=== PATIENT | female | born 1945 | race Caucasian/White ===

== ENCOUNTER 2017-02-28 08:33 | Outpatient (CLI) | payer MEDICARE ==
[2017-02-28 13:01] LABS: BASOPHILS % (AUTO) 0.7 %; EOSINOPHILS # (AUTO) 0.2 10^3/uL (0.0-0.7); EOSINOPHILS % (AUTO) 3.1 %; HCT - HEMATOCRIT 43.5 % (37.0-47.0); HGB - HEMOGLOBIN 14.1 g/dL (12.0-16.0); LYMPHOCYTES # (AUTO) 2.4 10^3/uL (1.5-3.5); LYMPHOCYTES % (AUTO) 34.5 %; MEAN CORPUSCULAR HGB CONC 32.3 g/dL (32.0-36.0); MEAN CORPUSCULAR VOLUME 86.6 fL (81.0-99.0); MEAN PLATELET VOLUME 9.2 fL (7.9-10.8); MONOCYTES # (AUTO) 0.4 10^3/uL (0.0-1.0); MONOCYTES % (AUTO) 6.1 %; NEUTROPHILS # (AUTO) 3.8 10^3/uL (1.5-6.6); NEUTROPHILS % (AUTO) 55.6 %; RED BLOOD COUNT 5.02 10^6/uL (4.20-5.40); UNCORRECTED WHITE BLOOD COUNT 6.8 x10^3/uL; WHITE BLOOD COUNT 6.8 x10^3/uL (4.8-10.8)
[2017-02-28 13:41] LABS: ALBUMIN/GLOBULIN RATIO 1.5 (1.0-2.2); BILIRUBIN,TOTAL 0.4 mg/dL (0.2-1.0); BUN - BLOOD UREA NITROGEN 24 mg/dL (6-20); CALCIUM 9.1 mg/dL (8.5-10.3); CARBON DIOXIDE - CO2 22 mmol/L (21-32); CHLORIDE 110 mmol/L (101-111); CHOL/HDL RATIO 3.4 (<4.4); CHOLESTEROL 198 mg/dL; GFR - MDRD 55 (>89); GLUCOSE 96 mg/dL (70-100); HDL CHOLESTEROL 58 mg/dL; POTASSIUM 4.5 mmol/L (3.5-5.0); SODIUM 140 mmol/L (135-145); TOTAL PROTEIN 6.5 g/dL (6.7-8.2); TRIGLYCERIDES 123 mg/dL; VLDL CHOLESTEROL 25 mg/dL
== END 2017-02-28 08:34 | disposition home or self-care (01) ==
LOC: LAB.WCP 08:33
PROVIDERS: ATTEND Family Medicine
DX: I10 Essential (primary) hypertension (principal); E78.5 Hyperlipidemia, unspecified
CPT/HCPCS: 36415; 80053; 80061; 85025

== ENCOUNTER 2017-03-01 10:44 | Outpatient (CLI) | payer OTHER ==
--- NOTE | 2017-03-04 11:23 | Mammography Report ---
DIGITAL SCREENING MAMMOGRAM: 03/01/2017 CLINICAL HISTORY: A 71-year-old female in for routine screening mammogram. The patient's grandmother had breast cancer at age 50. The patient has had no prior breast surgeries. COMPARISON: 01/04/2012, 03/10/2013, 04/13/2014, 05/09/2015. TECHNIQUE: Craniocaudad and oblique lateral views of each breast were obtained with Hologic full-field digital mammography. FINDINGS: BREAST DENSITY: The breasts are almost entirely composed of fat. Two small benign appearing lymph nodes are once again noted adjacent to one another at the 10 o'clock position of the right breast 8.3 cm superior lateral to the right nipple. A small cluster of benign calcifications are once again seen in the 6 o'clock position 8.4 cm inferior and posterior to the left nipple. No change is noted in this cluster of calcifications as compared to multiple preceding exams dating as far back as 01/04/2012. The finding continues to have a benign appearance. IMPRESSION: BREASTS APPEAR RADIOGRAPHICALLY BENIGN. BIRADS CATEGORY 2-BENIGN FINDINGS. RECOMMENDATION: ANNUAL BILATERAL SCREENING MAMMOGRAPHY. STANDARD QUALIFYING STATEMENTS 1. This examination was reviewed with the aid of Computer-Aided Detection (CAD). 2. A negative or benign imaging report should not delay biopsy if clinically suspicious findings are present. Consider surgical consultation if warranted. More than 5% of cancers are not identified by imaging. 3. Dense breasts may obscure an underlying neoplasm. JOB #: [id number] EXT JOB #: [id number] [facility]
== END 2017-03-01 10:45 | disposition home or self-care (01) ==
LOC: DI.N 10:44
PROVIDERS: ATTEND Family Medicine
DX: Z12.31 Encounter for screening mammogram for malignant neoplasm of breast (principal)
CPT/HCPCS: 77067

== ENCOUNTER 2017-09-19 09:07 | Outpatient (CLI) | payer MEDICARE ==
[2017-09-19 13:04] LABS: BASOPHILS % (AUTO) 0.5 %; EOSINOPHILS # (AUTO) 0.2 10^3/uL (0.0-0.7); EOSINOPHILS % (AUTO) 2.4 %; HGB - HEMOGLOBIN 14.9 g/dL (12.0-16.0); LYMPHOCYTES # (AUTO) 2.3 10^3/uL (1.5-3.5); LYMPHOCYTES % (AUTO) 30.1 %; MEAN CORPUSCULAR HEMOGLOBIN 30.3 pg (27.0-31.0); MEAN CORPUSCULAR VOLUME 91.7 fL (81.0-99.0); MEAN PLATELET VOLUME 8.9 fL (7.9-10.8); MONOCYTES # (AUTO) 0.4 10^3/uL (0.0-1.0); MONOCYTES % (AUTO) 5.5 %; NEUTROPHILS # (AUTO) 4.7 10^3/uL (1.5-6.6); NEUTROPHILS % (AUTO) 61.5 %; PLT - PLATELET COUNT 220 10^3/uL (130-450); RED BLOOD COUNT 4.93 10^6/uL (4.20-5.40); RED CELL DISTRIBUTION WIDTH 13.9 % (12.0-15.0); WHITE BLOOD COUNT 7.6 x10^3/uL (4.8-10.8)
[2017-09-19 13:25] LABS: ALBUMIN 4.1 g/dL (3.2-5.5); ALBUMIN/GLOBULIN RATIO 1.5 (1.0-2.2); ALKALINE PHOSPHATASE 81 IU/L (42-121); ALT ALANINE AMINOTRANSFERASE 27 IU/L (10-60); AST ASPARTATE AMINOTRANSFERASE 27 IU/L (10-42); BILIRUBIN,TOTAL 0.6 mg/dL (0.2-1.0); BUN - BLOOD UREA NITROGEN 21 mg/dL (6-20); CALCIUM 9.1 mg/dL (8.5-10.3); CARBON DIOXIDE - CO2 24 mmol/L (21-32); CHLORIDE 108 mmol/L (101-111); CHOL/HDL RATIO 2.9 (<4.4); CHOLESTEROL 200 mg/dL; CREATININE 1.1 mg/dL (0.4-1.0); GFR - MDRD 49 (>89); GLUCOSE 99 mg/dL (70-100); HDL CHOLESTEROL 68 mg/dL; LDL CHOLESTEROL,CALCULATED 114 mg/dL; LDL/HDL RATIO 1.7 (<4.4); SODIUM 140 mmol/L (135-145); TOTAL PROTEIN 6.8 g/dL (6.7-8.2); VLDL CHOLESTEROL 18 mg/dL
== END 2017-09-19 09:08 | disposition home or self-care (01) ==
LOC: LAB.WCP 09:07
PROVIDERS: ATTEND Family Medicine
DX: E78.5 Hyperlipidemia, unspecified (principal); E55.9 Vitamin D deficiency, unspecified; I10 Essential (primary) hypertension; Z79.899 Other long term (current) drug therapy
CPT/HCPCS: 36415; 80053; 80061; 82306; 85025

== ENCOUNTER 2018-03-06 10:07 | Outpatient (CLI) | payer MEDICARE ==
--- NOTE | 2018-03-07 09:35 | Mammography Report ---
Procedure Date: 03/06/2018 Accession Number: [id number] / [id number] Procedure: MGN - Screening Mammo Dig Bilat CPT Code: FULL RESULT: EXAM: Screening Mammo Dig Bilat DATE: 03/06/2018 10:36 AM CLINICAL HISTORY: Grandmother with breast cancer TECHNIQUE: Bilateral CC and MLO views were obtained. COMPARISON: 03/01/2017, 05/09/2015, 04/13/2014, 03/10/2013 and 01/04/2012 FINDINGS: There are scattered fibroglandular densities. On the right CC projection laterally there is a faint nodule with possible associated spiculation not confirmed on the MLO projection, likely representing superimposition of structures. However, further evaluation by spot compression and true lateral view is suggested. No other suspicious masses, clustered microcalcifications, skin thickening, or regions of architectural distortion are identified. IMPRESSION: Negative left breast. Needs additional evaluation right breast. RECOMMENDATION: Right spot compression and true lateral views. Ultrasound if indicated. BIRADS CATEGORY 0: Incomplete examination: STANDARD QUALIFYING STATEMENTS: 1. This examination was reviewed with the aid of Computer-Aided Detection (CAD). 2. A negative or benign imaging report should not delay biopsy if clinically suspicious findings are present. Consider surgical consultation if warrented. More than 5% of cancers are not identified by imaging. 3. Dense breasts may obscure an underlying neoplasm.
== END 2018-03-06 10:08 | disposition home or self-care (01) ==
LOC: DI.N 10:07
PROVIDERS: ATTEND Family Medicine
DX: Z12.31 Encounter for screening mammogram for malignant neoplasm of breast (principal); R92.8 Other abnormal and inconclusive findings on diagnostic imaging of breast
CPT/HCPCS: 77067

== ENCOUNTER 2018-06-19 14:00 | Outpatient (CLI) | payer MEDICARE ==
--- NOTE | 2018-06-19 16:08 | Mammography Report ---
Reason: CB RT BREAST w LUMPx 3MO. Procedure Date: 06/19/2018 Accession Number: [id number] / [id number] Procedure: SALLY - Diagnostic Right 3D Romeo CPT Code: 51527 FULL RESULT: EXAM: Diagnostic Right 3D Roemo DATE: 06/19/2018 2:45 PM CLINICAL HISTORY: 73-year-old female recalled from screening mammogram for right breast nodule; the patient also has been feeling a palpable lump in her right breast for 3 months. TECHNIQUE: Right cc and 2-D and 3-D romeo imaging was performed as well as a right spot CC and spot LM views. COMPARISON: 03/01/2017, 05/09/2015, 04/13/2014. FINDINGS: The breasts demonstrate scattered fibroglandular densities bilaterally. The identified nodule with questionable spiculation is demonstrated to have no associated spiculations and is well rounded and stable compared to previous study when reviewed with spot imaging and tomography. The area of a palpable lump by the patient is identified as stable breast tissue variation. No suspicious calcifications, masses or architectural distortion is identified. IMPRESSION: Benign findings RECOMMENDATION: Recommend routine annual Screening mammography unless otherwise clinically indicated. BIRADS CATEGORY 2: Benign findings STANDARD QUALIFYING STATEMENTS: 1. This examination was not reviewed with the aid of Computer-Aided Detection (CAD). 2. A negative or benign imaging report should not delay biopsy if clinically suspicious findings are present. Consider surgical consultation if warrented. More than 5% of cancers are not identified by imaging. 3. Dense breasts may obscure an underlying neoplasm. 4. This examination was reviewed with the aid of 3D imaging (tomography).
== END 2018-06-19 14:01 | disposition home or self-care (01) ==
LOC: DI 14:00
PROVIDERS: ATTEND Family Medicine
DX: N63.10 Unspecified lump in the right breast, unspecified quadrant (principal)

== ENCOUNTER 2018-09-01 09:31 | Outpatient (CLI) | payer MEDICARE ==
--- NOTE | 2018-09-01 17:22 | CT Report ---
Reason: BILATERAL SHOULDER SEVERE ARTHRITIS Procedure Date: 09/01/2018 Accession Number: [id number] / [id number] Procedure: CT - Upper Extremity Right W/O CPT Code: FULL RESULT: EXAM: RIGHT SHOULDER CT WITHOUT CONTRAST EXAM DATE: 09/01/2018 10:43 AM. CLINICAL HISTORY: Bilateral shoulder severe arthritis. COMPARISON: None. TECHNIQUE: Thin-section axial images were acquired of the shoulder without contrast. Post-processing: Oblique coronal and sagittal reformats. Other: None. In accordance with CT protocol optimization, one or more of the following dose reduction techniques were utilized for this exam: automated exposure control, adjustment of mA and/or KV based on patient size, or use of iterative reconstructive technique. FINDINGS: Bones: No fracture or bone lesion. Acromioclavicular Region: The patient has a type II acromion. The acromioclavicular joint is mildly osteoarthritic. Glenohumeral Joint: The glenohumeral joint shows "[id number]" appearance, marginal arthrosis, dysplastic flattening, and large marginal osteophytes extending inferiorly. Numerous loose bodies also seen in superior margin of the glenohumeral joint. Approximately 15 degrees of retroversion. Musculature: Normal. No fatty atrophy. Other: The visualized lungs are unremarkable. No lymphadenopathy in the visualized axilla. IMPRESSION: 1. Type II unipartite undersurface osseous acromion shape. Mild AC joint osteoarthritic change. 2. The glenohumeral joint shows broadening of the articular surfaces, "[id number]" appearance, subchondral sclerosis and cystic change, marginal arthrosis. Moderate retroversion also seen. Kellgren Gabriel grade 4 changes. [facility] MUSCULOSKELETAL RADIOLOGY SECTION
--- NOTE | 2018-09-01 17:22 | CT Report ---
Reason: BILATERAL SHOULDER SEVERE ARTHRITIS Procedure Date: 09/01/2018 Accession Number: [id number] / [id number] Procedure: CT - Upper Extremity Left W/O CPT Code: FULL RESULT: EXAM: LEFT SHOULDER CT WITHOUT CONTRAST EXAM DATE: 09/01/2018 10:43 AM. CLINICAL HISTORY: Bilateral shoulder severe arthritis. COMPARISON: SHOULDER 3 VIEW BILAT 08/21/2018 3:06 PM. TECHNIQUE: Thin-section axial images were acquired of the shoulder without contrast. Post-processing: Oblique coronal and sagittal reformats. Other: None. In accordance with CT protocol optimization, one or more of the following dose reduction techniques were utilized for this exam: automated exposure control, adjustment of mA and/or KV based on patient size, or use of iterative reconstructive technique. FINDINGS: Bones: No fracture or bone lesion. Acromioclavicular Region: The patient has a type II acromion. The acromioclavicular joint is moderately osteoarthritic. Glenohumeral Joint: Is broadened and shows large marginal osteophytosis extending primarily inferiorly. No retroversion. No distinct loose bodies. Small joint effusion. Musculature: Normal. No fatty atrophy. Other: The visualized lungs are unremarkable. No lymphadenopathy in the visualized axilla. IMPRESSION: 1. Glenohumeral joint shows "[id number]" appearance, with large marginal osteophytosis extending primarily inferiorly. No distinct loose bodies, significant broadening of the articular surfaces. Kellgren Gabriel grade 4 changes. [facility] MUSCULOSKELETAL RADIOLOGY SECTION
== END 2018-09-01 09:32 | disposition home or self-care (01) ==
LOC: DI 09:31
PROVIDERS: ATTEND Orthopaedic Surgery
DX: M19.011 Primary osteoarthritis, right shoulder (principal); M19.012 Primary osteoarthritis, left shoulder

== ENCOUNTER 2018-11-11 14:33 | Outpatient (CLI) | payer MEDICARE ==
--- NOTE | 2018-11-11 17:12 | MRI Report ---
Reason: OSTEOARTHORITIS OF BILATERAL SHOULDERS Procedure Date: 11/11/2018 Accession Number: [id number] / [id number] Procedure: MRI - Shoulder RT W/O CPT Code: FULL RESULT: EXAM: RIGHT SHOULDER MRI WITHOUT CONTRAST EXAM DATE: 11/11/2018 03:25 PM. CLINICAL HISTORY: Right shoulder osteoarthritis. COMPARISON: None. TECHNIQUE: Multiplanar, multisequence T1-weighted and fluid-sensitive sequences of the shoulder without contrast. Other: None. FINDINGS: Acromioclavicular Region: The acromion is type I. There is mild acromioclavicular joint osteoarthritis. The coracoacromial and coracoclavicular ligaments are intact. Small amount of fluid at the subacromial subdeltoid bursa. Glenohumeral Region: No subluxation. Small to moderate sized joint effusion. Grade 4 chondromalacia at the humeral head and glenoid. The glenohumeral ligaments and joint capsule are unremarkable. Bone Marrow: Cortical irregularity, subcortical cysts, sclerosis, osteophytosis, and subcortical marrow edema at the humeral head and glenoid. Labrum: Degenerative hypertrophy at the superior and posterior aspects of the labrum. Focal ossification at the posterior aspect of the superior labrum. The anterior and inferior aspects of the labrum are small and degenerated. Musculature/Rotator Cuff: There is supraspinatus and infraspinatus tendinosis. Teres minor tendon is intact. There is subscapularis tendinosis. No edema or fatty atrophy. Biceps Tendon: The long head of the biceps tendon and biceps dayana are intact. Other: The subcutaneous tissues are unremarkable. IMPRESSION: 1. Severe glenohumeral joint osteoarthritis. 2. Supraspinatus, infraspinatus, and subscapularis tendinosis. 3. Degenerative hypertrophy at the superior and posterior aspects of the labrum. The anterior and inferior aspects of the labrum are small and degenerated. Focal ossification at the posterior aspect of the superior labrum. 4. Mild acromioclavicular joint osteoarthritis. 5. Small to moderate sized joint effusion. [facility] MUSCULOSKELETAL RADIOLOGY SECTION
== END 2018-11-11 14:34 | disposition home or self-care (01) ==
LOC: DI 14:33
PROVIDERS: ATTEND Orthopaedic Surgery Sports Medicine
DX: M19.012 Primary osteoarthritis, left shoulder (principal); M19.011 Primary osteoarthritis, right shoulder; M67.911 Unspecified disorder of synovium and tendon, right shoulder; M25.411 Effusion, right shoulder

== ENCOUNTER 2018-12-23 08:00 | Outpatient (CLI) | payer MEDICARE ==
[2018-12-23 18:59] LABS: BASOPHILS % (AUTO) 0.5 %; EOSINOPHILS # (AUTO) 0.2 10^3/uL (0.0-0.7); EOSINOPHILS % (AUTO) 3.2 %; HGB - HEMOGLOBIN 14.5 g/dL (12.0-16.0); LYMPHOCYTES # (AUTO) 2.9 10^3/uL (1.5-3.5); LYMPHOCYTES % (AUTO) 40.4 %; MEAN CORPUSCULAR HEMOGLOBIN 30.1 pg (27.0-31.0); MEAN CORPUSCULAR HGB CONC 32.7 g/dL (32.0-36.0); MEAN CORPUSCULAR VOLUME 92.1 fL (81.0-99.0); MEAN PLATELET VOLUME 8.7 fL (7.9-10.8); MONOCYTES # (AUTO) 0.5 10^3/uL (0.0-1.0); MONOCYTES % (AUTO) 6.4 %; NEUTROPHILS # (AUTO) 3.5 10^3/uL (1.5-6.6); NEUTROPHILS % (AUTO) 49.5 %; PLT - PLATELET COUNT 252 10^3/uL (130-450); RED BLOOD COUNT 4.83 10^6/uL (4.20-5.40); RED CELL DISTRIBUTION WIDTH 13.3 % (12.0-15.0); WHITE BLOOD COUNT 7.1 x10^3/uL (4.8-10.8)
[2018-12-23 19:27] LABS: CALCIUM 8.6 mg/dL (8.5-10.3); CREATININE 1.1 mg/dL (0.4-1.0)
== END 2018-12-23 23:59 | disposition home or self-care (01) ==
LOC: LAB.WCP 08:00
PROVIDERS: ATTEND Orthopaedic Surgery Sports Medicine
DX: Z01.812 Encounter for preprocedural laboratory examination (principal); M19.011 Primary osteoarthritis, right shoulder
CPT/HCPCS: 36415; 80048; 85025; 87640

== ENCOUNTER 2018-12-24 07:30 | Inpatient (IN) | payer MEDICARE ==
[2018-12-31] MEDS ORDERED: ceFAZolin 2 GM/50 ML 2 GM/50 ML BAG IV ONE ×2 (06:36→09:30)
[2018-12-31] MEDS ORDERED: LACTATED RINGERS 1,000 ML IV ONE ×3 (07:05→12:25)
--- NOTE | 2018-12-31 07:16 | ANESTHESIA ---
Pre-Anesthesia VS, & Labs - Diagnosis right shoulder degenerative joint disease - Procedure right total shoulder arthroplasty Vital Signs: Temp Pulse Resp BP Pulse Ox 36.5 C 92 18 112/95 H 95 12/31/18 06:51 12/31/18 06:51 12/31/18 06:51 12/31/18 06:51 12/31/18 06:51 Height 5 ft 5 in Weight (kg) 89.9 kg - NPO >8 hours - Is Patient ?: Not Applicable Home Medications and Allergies Home Medications: Ambulatory Orders Hydrocortisone 1% Oint [Hydrocortisone] 28 gm TP BID PRN 12/18/18 Melatonin 1 mg PO QPM PRN 12/18/18 Multivitamin [Multiple Vitamins] 1 each PO DAILY 12/18/18 Acetaminophen [Tylenol] 650 mg PO Q6H PRN 11/09/13 Calcium Carbonate/Vitamin D3 [Calcium + Vitamin D Tablet] 1 each PO QPM 11/09/13 Lisinopril 20 mg PO DAILY 11/09/13 Meloxicam [Mobic] 7.5 mg PO BID 11/09/13 Oxybutynin Chloride [Oxybutynin Chloride ER] 10 mg PO BID 11/09/13 Pravastatin Sodium 20 mg PO QPM 11/09/13 Ranitidine HCl [Acid Wire Saw Operator] 150 mg PO BIDWM 11/09/13 traMADol [Ultram] 50 mg PO QID PRN 08/29/16 Aspirin [Aspir-Low] 81 mg PO DAILY 08/30/16 Hydrocortisone 1% Oint [Hydrocortisone] 28 gm TP BID PRN 12/18/18 Melatonin 1 mg PO QPM PRN 12/18/18 Multivitamin [Multiple Vitamins] 1 each PO DAILY 12/18/18 Allergies/Adverse Reactions: Allergies Allergy/AdvReac Type Severity Reaction Status Date / Time No Known Drug Allergies Allergy Verified 11/09/13 15:40 Anes History & Medical History - Anesthetic History Anesthesia Complications: reports: No previous complications Family history of Anesthesia Complications: Denies Family history of Malignant Hyperthermia: Denies - Medical History Cardiovascular: reports: Hypertension, High cholesterol Pulmonary: reports: None Gastrointestinal: reports: GERD Urinary: reports: Incontinence Musculoskeletal: reports: Osteoarthritis, Chronic back pain, Other Endocrine/Autoimmune: reports: None Skin: reports: Eczema - Surgical History General: Colonoscopy Eyes Ears Nose Throat (EENT): Cataracts, Other Gynecologic: Tubal ligation, Hysterectomy Exam General: Alert, Oriented x3, Cooperative, No acute distress Dental: Other (caps) Mouth Openin Fingerbreadth Neck Mobility: Normal Mallampati classification: III Thyromental Distance: greater than 6 cm Respiratory: Lungs clear, Normal breath sounds, No respiratory distress, No accessory muscle use Cardiovascular: Regular rate, Normal S1, Normal S2, No murmurs Mental/Cognitive Status: Alert/Oriented X3, Normal for patient Plan Anesthesia Type: General, Interscalene Block Consent for Procedure(s) Verified and Reviewed: Yes Code Status: Attempt Resuscitation ASA classification: 2-Mild systemic disease Is this case an emergency?: No
[2018-12-31] MEDS ORDERED: ROCURONIUM 50 MG/5 ML VIAL IVP ONE (09:30)
[2018-12-31] MEDS ORDERED: fentaNYL 100 MCG/2 ML VIAL IVP ONE (09:30)
[2018-12-31] MEDS ORDERED: PROPOFOL 200 MG/20 ML VIAL IVP ONE (09:30)
[2018-12-31] MEDS ORDERED: LIDOCAINE-MPF 2% 5 ML VIAL IM ONE (09:30)
[2018-12-31] MEDS ORDERED: ePHEDrine 50 MG/ML VIAL IVP ONE (09:30)
[2018-12-31] MEDS ORDERED: MIDAZOLAM 2 MG/2 ML VIAL IVP ONE (09:30)
[2018-12-31] MEDS ORDERED: NEOSTIGMINE 1 MG/1 ML 10 ML MDV IVP ONE (09:30)
[2018-12-31] MEDS ORDERED: ACETAMINOPHEN 1,000 MG/100 ML 100 ML IV ONE (09:30)
[2018-12-31] MEDS ORDERED: ONDANSETRON 4 MG/2 ML VIAL IVP ONE (09:30)
[2018-12-31] MEDS ORDERED: GLYCOPYRROLATE 1 MG/5 ML VIAL IVP ONE (09:30)
[2018-12-31] MEDS: LACTATED RINGERS 1,000 ML IV ONE (09:53)
[2018-12-31] MEDS ORDERED: ONDANSETRON 4 MG/2 ML VIAL ONE (11:57)
--- NOTE | 2018-12-31 11:57 | IMMEDIATE POSTOPERATIVE NOTE ---
Immediate Postoperative Note - Procedure Note Procedure Date: 12/31/18 Pre-Op Diagnosis: Right shoulder degenerative joint disease Procedure: Right total shoulder arthroplasty Post-Op Diagnosis: Same Primary Surgeon: Lois Can MD Supervisor Slitting And Shipping: janel Anesthesia Type: General ET tube, Regional block Findings: Advanced right shoulder glenohumeral degenerative disease with some medialization of the joint and cystic changes sclerosis and diminutive bone anterior inferior glenoid. Ultimately well-positioned total shoulder arthroplasty with appropriate range of motion and stability. External rotation to possibly 40 degrees post subscapularis repair with good integrity of the repair. Complications: No complications Plan of Care: Patient tolerated procedure well. Instrument and sponge counts correct. Patient transferred to the recovery room in stable condition. Patient will follow standard postoperative right total shoulder arthroplasty protocol. She would be in a sling. She will be encouraged for wrist and hand motion as well as elbow flexion extension. She would not externally rotate beyond 0 degrees. She would do no active internal rotation at the shoulder. No other active shoulder motion for now. She would avoid weightbearing and resistance right upper extremity. She would be admitted for pain control and observation and pending eating ambulating and comfortable would be plan to discharge postoperative day 1 if doing well.
[2018-12-31] MEDS ORDERED: SODIUM CHLORIDE FLUSH 0.9% 10 ML SYRINGE IVP PRN (11:59)
[2018-12-31] MEDS ORDERED: ACETAMINOPHEN 1,000 MG/100 ML 100 ML IV PRN (11:59)
[2018-12-31] MEDS ORDERED: PROCHLORPERAZINE 10 MG/2 ML VIAL IVP PRN (11:59)
[2018-12-31] MEDS ORDERED: MORPHINE 2 MG/ML SYRINGE IVP PRN (11:59)
[2018-12-31] MEDS ORDERED: ONDANSETRON 4 MG/2 ML VIAL IVP PRN (11:59)
[2018-12-31] MEDS: fentaNYL 100 MCG/2 ML VIAL ONE ×3 (12:09→12:39)
[2018-12-31] MEDS ORDERED: PROMETHAZINE 25 MG/1 ML VIAL ONE (12:21)
[2018-12-31] MEDS: ceFAZolin 2 GM/50 ML 2 GM/50 ML BAG IV SCH ×2 (13:16→21:57)
--- NOTE | 2018-12-31 15:45 | OPERATIVE REPORT ---
DATE OF SERVICE: 12/31/2018 Physician: Dimas Can MD SURGEON: Dimas Can MD BOTTLE CASER: None. ANESTHESIOLOGIST: Gurjit Morales MD ANESTHESIA TYPE: Right side ultrasound-guided interscalene block by Anesthesia team as well as general endotracheal anesthesia. COMPRESSION DEVICE: Bilateral calf SCD boots. PREOPERATIVE ANTIBIOTICS: 2 grams of weight-based IV Ancef. ESTIMATED BLOOD LOSS: 100 mL. FLUIDS: 1300 mL of lactated Ringer's. INTRAOPERATIVE COMPLICATIONS: None noted. PREOPERATIVE DIAGNOSIS: Right shoulder glenohumeral degenerative joint disease. POSTOPERATIVE DIAGNOSIS: Right shoulder glenohumeral degenerative joint disease. PROCEDURE PERFORMED: Right total shoulder arthroplasty. ORTHOPEDIC IMPLANTS [id number]: 1. Comprehensive shoulder system modular head variable offset.Head size 42 x 18 mm height x 46 mm radius of curvature. 2. Hybrid glenoid base.Glenoid size 4 small. 3. Hybrid glenoid porous titanium glenoid post-Regenerex. 4. Comprehensive shoulder system mini humeral stem porous plasma.Mini humeral stem 13 x 83 mm. 5. Comprehensive shoulder system standard taper adapter. 6. [employer] Ref[employer] bone cement. INTRAOPERATIVE FINDINGS: Patient noted to have significant crepitus and decreased range of motion of the glenohumeral joint, which improves post procedure. The articular surface of the glenohumeral joint sclerotic cystic change with significant osteophytosis, flattening of the humeral head, flattening and medialization of the glenoid with poor bone stock anterior inferiorly. There is good fixation of the components with range of motion, forward flexion over 170 degrees, abduction greater than 80 degrees, internal rotation to the belt line, external rotation greater than 40 degrees post- subscapularis fixation with good integrity of the repair. There is appropriately 50% translation with "shucking." There is noted to be very thin bone anterior inferiorly, so given the orientation of the glenoid and bone stock, unable to push the glenoid further posteriorly without compromising posterior fixation. As such, there is a thin rim of bone supporting the anterior inferior peg. HISTORY OF PRESENT ILLNESS AND INDICATIONS: Patient is a 73-year-old female with longstanding right shoulder pain. She is known to have glenohumeral degenerative disease and indicated for operative treatment. We did discuss previously risks, benefits, and alternatives in the clinic. These were again highlighted in the preoperative care unit. She verbalized understanding of the above and verbalized her wish to proceed with operative treatment. Informed consent was given. DESCRIPTION OF PROCEDURE: On 12/31/2018, patient was identified in the preoperative care unit. She identifies her right shoulder as operative site. This is signed by operating surgeon. Patient received preoperative weight-based IV antibiotics. Right side is identified. She has ultrasound-guided interscalene block by Anesthesia team. Patient is brought to the operating room. General anesthesia is administered. Patient is placed in a beach chair position with head, neck, extremities in anatomically comfortable and safe position to avoid peripheral nerve stretch or compression. Patient then has right upper extremity draped out and then pre- scrubbed with Hibiclens solution and then alcohol. She then has chlorhexidine prep and drape sterilely. At this point, surgical pause identifies right shoulder as operative site. At this point, a deltopectoral incision is made through skin, spreading dissection carried down to the deltopectoral interval. Cephalic vein is identified and brought laterally with the deltoid. At this point, conjoined tendon is identified, the clavipectoral fascia is entered, and then the area under the deltoid is developed using a Mckeon and lap pad. A Yamilex retractor is then placed gently against the conjoined tendon and onto the deltoid. This reveals bursal tissue, which is removed, revealing the underlying subscapularis. At this point, the biceps tendon is palpated in the groove, and then with an appropriate approximately 1 cm cuff, after tagging the subscapularis at the superior and inferior aspects, the subscapularis and the capsule are elevated away after tenotomy. This reveals underlying glenohumeral joint with significant osteophytosis. The rotator interval reveals that the biceps has a small biceps stump, but otherwise the biceps is sitting in the groove and has already had a traumatic tenotomy. At this point, osteophytosis is removed, the soft tissue is elevated off the inferior aspect of the neck, staying inside the capsule to avoid iatrogenic injury to axillary nerve and associated vascular structures. Once the soft tissue is elevated appropriately and soft tissue is released appropriately, the osteophytosis is then removed around the head. The anterior aspect of the supraspinatus is noted to be intact and protected throughout. At this point, the template is set appropriately, such that it will be approximately 5 mm off the footprint of the rotator cuff with appropriate version. Given the patient's slight retroversion of the [place] glenoid, it is felt that 25-30 degrees of retroversion will be appropriate, and in this case, the 30-degree guide is used. This would be to try to avoid posterior dislocation or escape. At this point, the template is set appropriately, and then with protection of the soft tissues, the head cut is made. This is measured. At this point, canal finding reamer is used. Reaming goes up by hand to a 13 with excellent contact with the cortex. At this point, broaching goes up to size 13 and is found to be appropriate. At this point, a cap is placed, and then attention is directed towards the glenoid. Appropriate glenoid retracted using a Fukuda, and then anterior and inferior retractors are used to expose the glenoid. The labrum is removed. Care, again, is taken inferiorly to avoid iatrogenic injury as well as superior to avoid overlying rotator cuff. Once the glenoid is completely exposed, the optimal glenoid position is identified. It is sized to be a size small, as a medium is felt to be too large and overhangs in multiple locations. The glenoid is pushed posteriorly to achieve good bone stock, though nonetheless, the anterior inferior quadrant does show very thin bone. At this point, minimal curette is performed, and then a guide pin is placed appropriately in the central portion of the glenoid, followed by reaming with a size small, followed by reaming of the central peg, followed by the 3-peg drilling. These holes are all probed, and there is some bony penetration of the anterior inferior quadrant, as well as the most deep portion of the central metallic peg location. Otherwise, bone is noted in all of the cut surfaces. Residual sclerotic bone has small drill holes placed with a small drill, and at this point, the glenoid is copiously irrigated. A trial is placed, and then a trial is placed in the humeral head, showing good range of motion and stability. Please see operative findings. At this point, attention is directed towards again exposing the glenoid for expected implantation. The holes are irrigated and meticulously dried, and then the small peg holes have cement placed in them, after cement preparation. The back of the polyethylene is prepared with cement where the metallic central peg is cement free. At this point, the glenoid is impacted into place and held. Residual minimal cement at the periphery is removed. It is noted to seat well. At this point, after hardening of the cement, the broach is removed from the humeral head while protecting the glenoid. The final implant is impacted in the appropriate amount of version, just under 30 degrees, and the size 13 seats nicely, followed by appropriately offset rotationally for the head to cover the entire proximal humerus. This is the C position for the variable offset. Final implants are impacted and seat nicely in the glenohumeral joint with appropriate range of motion and stability. At this point, copious pulsatile lavage is irrigated. At this point, the superior aspect of the subscapularis is then sutured using a #2 FiberWire, followed by closure of the more lateral rotator interval, and then the subscapularis is repaired throughout its length using a combination of Sam- Paco type sutures and ydzpme-ov-mituc sutures to its essentially anatomic position. Suture limbs are cut. The subscapularis repair is noted to be with good integrity. External rotation is to about 40 degrees with good integrity. At this point, the wound is copiously irrigated again, and then the deltopectoral interval is closed using interrupted Vicryl suture, followed by repeat irrigation, hemostasis, and then closure of the skin using 0 Vicryl, 2-0 Vicryl, and then Prolene. The skin is washed and dried. Steri-Strips are applied using Mastisol, and then a silver dressing is applied. Patient tolerated the procedure well. Instrument and sponge counts are correct. Patient is placed in a shoulder immobilizer and transferred to the recovery room in stable condition. Patient will follow standard postoperative right total shoulder arthroplasty protocol. She will avoid external rotation beyond 0 degrees. She will avoid any active internal rotation or active shoulder motion for now. She would be advised on active and active-assisted hand, wrist, and elbow motion while protecting the shoulder. She would stay in the sling unless she was doing physical therapy or bathing. She will be admitted for pain control and neurovascular checks with expected discharge when eating, ambulating, and comfortable, and set up for her home environment. TD: 12/31/2018 13:58 ISSAC
[2018-12-31] MEDS: HYDROcod/ACETAM 5/325 MG TABLET PO PRN (16:15)
[2018-12-31] MEDS: SODIUM CHLORIDE FLUSH 0.9% 10 ML SYRINGE IVP SCH ×2 (17:07→23:56)
[2018-12-31] MEDS: oxyCODONE 5 MG TABLET PO PRN ×2 (19:50→23:55)
[2018-12-31] MEDS: OXYBUTYNIN 5MG TABLET PO SCH (21:36)
[2018-12-31] MEDS ORDERED: BENZOCAINE/MENTHOL LOZENGE MM PRN (21:57)
[2019-01-01] MEDS: oxyCODONE 5 MG TABLET PO PRN ×3 (04:02→12:06)
[2019-01-01 07:39] VITALS: BP 120/57
--- NOTE | 2019-01-01 07:40 | Discharge Plan ---
Discharge Plan Disposition: 01 Home, Self Care Condition: Good Prescriptions: oxyCODONE [Roxicodone] 5 mg PO Q6H PRN #40 tablet PRN Reason: Pain Diet: Regular Activity Restrictions: RIGHT SHOULDER, SLING, NON-WEIGHT BEARING, NO ACTIVE SHOULDER MOTION, NO EXTERNAL ROTATION, MAY MOVE HAND WRIST ELBOW Shower Restrictions: Yes (NO SHOWER 3 DAYS POST-OP, THEN MAY SHOWER KEEPING DRESSING DRY) Driving Restrictions: Yes (NO USE RUE) Assistance Devices: Sling Weight Bearing: No Weight Additional Instructions or Follow Up instructions: FOLLOW-UP 10-14 DAYS ORTHO CLINIC, OR SOONER NEEDED No Smoking: If you smoke, Please STOP! Call for help. Follow-up with: Dimas Can MD [Provider Admit Priv/Credential] -
--- NOTE | 2019-01-01 07:47 | DISCHARGE SUMMARY ---
"Discharge Summary Admit Date: 12/31/18 Discharge Date: 01/01/19 Discharging Provider: Lois MG Code Status: Attempt Resuscitation Condition at Discharge: Good Discharge Disposition: 01 Home, Self Care - DIAGNOSES Admission Diagnoses: RIGHT SHOULDER DJD Discharge Diagnoses with Status of Each Condition: UNCHANGED FROM ADMISSION, PLEASE SEE ADMISSION H&P - HPI History of Present Illness: 73YO female with right shoulder djd. indicated for R TSA. Planned admission for surgical treatment. See admission H&P for further details. - CONSULTS | PROCEDURES Procedures: RIGHT TOTAL SHOULDER ARTHROPLASTY - HOSPITAL COURSE Hospital Course: Patient underwent uncomplicated R TSA with GA and regional block. Did well overnight on POD0. Had some tachycardia which resolved. POD1 AM doing well with mild discomfort anterior shoulder. Urinating and eating. Was up with PT yesterday. Please see chart for further details. - ALLERGIES Allergies/Adverse Reactions: Allergies Allergy/AdvReac Type Severity Reaction Status Date / Time No Known Drug Allergies Allergy Verified 11/09/13 15:40 - MEDICATIONS Home Medications: Ambulatory Orders Medication Instructions Recorded Confirmed Acetaminophen [Tylenol] 650 mg PO Q6H PRN 11/09/13 12/18/18 Calcium Carbonate/Vitamin D3 1 each PO QPM 11/09/13 12/18/18 [Calcium 600-Vit D3 200 Tablet] Lisinopril 20 mg PO DAILY 11/09/13 12/18/18 Meloxicam [Mobic] 7.5 mg PO BID 11/09/13 12/31/18 Oxybutynin Chloride [Oxybutynin 10 mg PO BID 11/09/13 12/31/18 Chloride ER] Pravastatin Sodium 20 mg PO QPM 11/09/13 12/31/18 Ranitidine HCl [Acid Lube Worker] 150 mg PO BIDWM 11/09/13 12/31/18 traMADol [Ultram] 50 mg PO QID PRN 08/29/16 12/31/18 Aspirin [Aspir-Low] 81 mg PO DAILY 08/30/16 12/31/18 Hydrocortisone 1% Oint 28 gm TP BID PRN 12/18/18 12/18/18 [Hydrocortisone] Melatonin 1 mg PO QPM PRN 12/18/18 12/18/18 Multivitamin [Multiple Vitamins] 1 each PO DAILY 12/18/18 12/31/18 oxyCODONE [Roxicodone] 5 mg PO Q6H PRN #40 tablet 01/01/19 - PHYSICAL EXAM AT DISCHARGE General Appearance: positive: No acute distress Physical Exam Other/Comments: Patient AnOx3. Awake and talking. RUE shoulder dressing CDI. Sling in place. R/M/U/Mc/Ax motor and sensory present. able to easily move hand and wrist. Fires deltoid. arm and forearm soft. no surrounding erythema. - FOLLOW UP Follow Up: F/U ortho 10-14 days DC instructions: 1) Non weight bearing RUE. NO active shoulder motion. No external rotation beyond zero. No active shoulder internal rotation. Sling at all times unless arm hanging for shower. May move hand wrist elbow. 2) Analgesic Rx given. 3) Recommend OTC bowel regimen while on narcotic analgesics. 4) Keep dressing clean dry intact. No shower for 3 days. When shower, keep dressing dry. 5) Call office if problems/questions - TIME SPENT Time Spent in Discharge (Minutes): 30"
[2019-01-01] MEDS ORDERED: ASPIRIN 325 MG TABLET PO SCH (08:00)
[2019-01-01] MEDS: ACETAMINOPHEN 325 MG TABLET PO PRN ×2 (08:19→12:06)
[2019-01-01] MEDS: OXYBUTYNIN 5MG TABLET PO SCH (08:20)
[2019-01-01] MEDS: SODIUM CHLORIDE FLUSH 0.9% 10 ML SYRINGE IVP SCH (08:21)
[2019-01-01] MEDS ORDERED: LISINOPRIL 20 MG TABLET PO SCH (09:00)
--- NOTE | 2019-01-01 09:34 | XRAY Report ---
Reason: post-op Procedure Date: 01/01/2019 Accession Number: [id number] / [id number] Procedure: XR - Shoulder 1 View RT CPT Code: FULL RESULT: EXAM: RIGHT SHOULDER RADIOGRAPHY EXAM DATE: 01/01/2019 09:15 AM. CLINICAL HISTORY: Recent placement of right shoulder arthroplasty. COMPARISON: MRI SHOULDER RT W/O 11/11/2018 2:07 PM. TECHNIQUE: 1 views. FINDINGS: Bones: Limited portable exam, there is satisfactory appearance and position of right shoulder arthroplasty. The preoperative MRI findings from 11/11/2018 are noted. Joints: Mild right acromioclavicular joint osteoarthritis. Surgical changes of the glenoid Soft tissues: The visualized hemithorax is unremarkable. No soft tissue swelling. IMPRESSION: On limited portable examination, there is satisfactory postoperative appearance of the right shoulder arthroplasty. RADIA
[2019-01-01] MEDS: HYDROcod/ACETAM 5/325 MG TABLET PO PRN (10:05)
== END 2019-01-01 13:00 | disposition home or self-care (01) | DRG 483 ==
LOC: MS2 12-31 06:43
PROVIDERS: ADMIT Orthopaedic Surgery Sports Medicine; ATTEND Orthopaedic Surgery Sports Medicine
PROC: 0RRJ0JZ Replacement of Right Shoulder Joint with Synthetic Substitute, Open Approach (ICD-10-PCS; principal; 2018-12-31 08:30)
DX: M19.011 Primary osteoarthritis, right shoulder (principal); R00.0 Tachycardia, unspecified; I10 Essential (primary) hypertension; E78.00 Pure hypercholesterolemia, unspecified; K21.9 Gastro-esophageal reflux disease without esophagitis; G89.29 Other chronic pain; M54.9 Dorsalgia, unspecified; L30.9 Dermatitis, unspecified; R32 Unspecified urinary incontinence; M85.80 Other specified disorders of bone density and structure, unspecified site; Z79.82 Long term (current) use of aspirin; Z79.899 Other long term (current) drug therapy; Z87.891 Personal history of nicotine dependence
CPT/HCPCS: 73020; 97161; 97165; 97535; A9270; J0131; J0690; J2270; J7120

== ENCOUNTER 2018-12-25 10:53 | Outpatient (CLI) | payer MEDICARE | END 2018-12-25 10:54 | disposition home or self-care (01) | LOC: RT 10:53 | PROVIDERS: ATTEND Orthopaedic Surgery Sports Medicine | DX: Z01.810 Encounter for preprocedural cardiovascular examination (principal); M19.011 Primary osteoarthritis, right shoulder | CPT/HCPCS: 93005 ==

== ENCOUNTER 2018-12-29 08:00 | Outpatient (CLI) | payer MEDICARE | END 2018-12-29 23:59 | disposition home or self-care (01) | LOC: LAB.WCP 08:00 | PROVIDERS: ATTEND Family Medicine | DX: I10 Essential (primary) hypertension (principal); Z79.899 Other long term (current) drug therapy | CPT/HCPCS: 36415; 80048 ==

== ENCOUNTER 2019-01-26 12:40 | Outpatient (CLI) | payer MEDICARE | END 2019-01-26 12:41 | disposition home or self-care (01) | LOC: DI 12:40 | PROVIDERS: ATTEND Family Medicine | DX: R01.1 Cardiac murmur, unspecified (principal); I35.0 Nonrheumatic aortic (valve) stenosis; I11.9 Hypertensive heart disease without heart failure | CPT/HCPCS: 93306 ==

== ENCOUNTER 2019-07-31 10:43 | Outpatient (CLI) | payer MEDICARE, MEDICAID ==
--- NOTE | 2019-07-31 11:30 | Mammography Report ---
Reason: SCREENING MAMMO Procedure Date: 07/31/2019 Accession Number: [id number] / [id number] Procedure: MGN - Screening Mammo Dig Bilat CPT Code: Final Report FULL RESULT: EXAM: Screening Mammo Dig Bilat DATE: 07/31/2019 11:10 AM CLINICAL HISTORY: Routine screening. No reported personal history of breast cancer. Family history breast cancer maternal grandmother age 58. TECHNIQUE: (B) - Bilateral CC and MLO views were obtained. COMPARISON: 03/06/2018 through 04/13/2014. PARENCHYMAL PATTERN: (A) - The breasts demonstrate scattered fibroglandular densities bilaterally. FINDINGS: Bilateral breasts: There are no suspicious masses, calcifications, or areas of distortion. IMPRESSION: Negative examination. BI-RADS category 1. RECOMMENDATION: (ANNUAL) - Recommend routine annual screening mammography. BI-RADS CATEGORY: (1) - Negative. STANDARD QUALIFYING STATEMENTS: 1. This examination was not reviewed with the aid of Computer-Aided Detection (CAD). 2. A negative or benign imaging report should not preclude biopsy if clinically suspicious findings are present. 3. Dense breasts may obscure an underlying neoplasm. 4. This examination was reviewed without the aid of 3D breast imaging (tomosynthesis).
== END 2019-07-31 10:44 | disposition home or self-care (01) ==
LOC: DI.N 10:43
DX: Z12.31 Encounter for screening mammogram for malignant neoplasm of breast (principal); Z80.3 Family history of malignant neoplasm of breast
CPT/HCPCS: 77067

== ENCOUNTER 2020-01-27 07:40 | Outpatient (CLI) | payer MEDICARE, MEDICAID ==
[2020-01-27 12:47] LABS: BASOPHILS % (AUTO) 0.5 %; EOSINOPHILS # (AUTO) 0.3 10^3/uL (0.0-0.7); EOSINOPHILS % (AUTO) 4.5 %; HGB - HEMOGLOBIN 14.9 g/dL (12.0-16.0); LYMPHOCYTES # (AUTO) 2.3 10^3/uL (1.5-3.5); LYMPHOCYTES % (AUTO) 36.7 %; MEAN CORPUSCULAR HEMOGLOBIN 30.5 pg (27.0-31.0); MEAN CORPUSCULAR HGB CONC 32.3 g/dL (32.0-36.0); MEAN CORPUSCULAR VOLUME 94.5 fL (81.0-99.0); MEAN PLATELET VOLUME 10.4 fL (7.9-10.8); MONOCYTES # (AUTO) 0.4 10^3/uL (0.0-1.0); MONOCYTES % (AUTO) 6.4 %; NEUTROPHILS # (AUTO) 3.2 10^3/uL (1.5-6.6); NEUTROPHILS % (AUTO) 51.6 %; PLT - PLATELET COUNT 237 10^3/uL (130-450); RED BLOOD COUNT 4.89 10^6/uL (4.20-5.40); RED CELL DISTRIBUTION WIDTH 13.4 % (12.0-15.0); WHITE BLOOD COUNT 6.3 x10^3/uL (4.8-10.8)
[2020-01-27 13:07] LABS: ALBUMIN 3.9 g/dL (3.2-5.5); ALBUMIN/GLOBULIN RATIO 1.3 (1.0-2.2); ALKALINE PHOSPHATASE 75 IU/L (42-121); ALT ALANINE AMINOTRANSFERASE 32 IU/L (10-60); AST ASPARTATE AMINOTRANSFERASE 25 IU/L (10-42); BILIRUBIN,TOTAL 0.8 mg/dL (0.2-1.0); BUN - BLOOD UREA NITROGEN 26 mg/dL (6-20); CALCIUM 9.1 mg/dL (8.5-10.3); CARBON DIOXIDE - CO2 23 mmol/L (21-32); CHLORIDE 112 mmol/L (101-111); CHOL/HDL RATIO 3.2 (<4.4); CHOLESTEROL 230 mg/dL; CREATININE 1.2 mg/dL (0.4-1.0); GLUCOSE 98 mg/dL (70-100); HDL CHOLESTEROL 71 mg/dL; LDL CHOLESTEROL,CALCULATED 140 mg/dL; SODIUM 139 mmol/L (135-145); TOTAL PROTEIN 6.9 g/dL (6.7-8.2); VLDL CHOLESTEROL 19 mg/dL
[2020-01-27 13:17] LABS: HB2 TOTAL 15.3 g/dL; HEMOGLOBIN A1C 0.58 g/dL; HEMOGLOBIN A1C % 5.6 % (4.6-6.2)
== END 2020-01-27 23:59 | disposition home or self-care (01) ==
LOC: LAB.WCP 07:40
PROVIDERS: ATTEND Nurse Practitioner Family
DX: I10 Essential (primary) hypertension (principal); E78.5 Hyperlipidemia, unspecified; Z83.3 Family history of diabetes mellitus
CPT/HCPCS: 36415; 80053; 80061; 83036; 83721; 85025

== ENCOUNTER 2020-02-17 10:16 | Outpatient (CLI) | payer MEDICARE, MEDICAID | END 2020-02-17 10:17 | disposition home or self-care (01) | LOC: DI 10:16 | PROVIDERS: ATTEND Nurse Practitioner Family | DX: I35.0 Nonrheumatic aortic (valve) stenosis (principal); I51.7 Cardiomegaly | CPT/HCPCS: 93306 ==

== ENCOUNTER 2020-03-15 10:51 | Outpatient (CLI) | payer MEDICARE ==
--- NOTE | 2020-03-15 11:49 | DEXA Report ---
Reason: OSTEOPENIA Procedure Date: 03/15/2020 Accession Number: [id number] / [id number] Procedure: DEX - Dexa Spine and/or Hip CPT Code: Final Report FULL RESULT: PROCEDURE: Dexa Spine and/or Hip INDICATIONS: Osteopenia TECHNIQUE: Dual energy x-ray absorptiometry (DXA) was performed on a [employer] System. Regions measured are the AP Spine, femoral neck, and if needed forearm. COMPARISON: 11/18/2013 FINDINGS: Lumbar Spine: Bone Mineral Density 1.163 g/cm/cm, T-score -0.1, normal bone mineral density in the spine. Left Hip: Bone Mineral Density 0.964 g/cm/cm, T-score -0.3, normal. Left Femoral Neck: Bone Mineral Density 0.789 g/cm/cm, T-score -1.8, osteopenia (T score greater or equal to -1.0: NORMAL) (T score from -1.1 to -2.4: OSTEOPENIA) (T score less than or equal to -2.5 to: OSTEOPOROSIS) Impression: Osteopenia, with decreased bone mineral density of the left femoral neck when compared with 11/18/2013 exam. Patients with diagnosis of osteoporosis or osteopenia should have regular bone mineral density assessment. For those eligible for Medicare, routine testing is allowed once every 2 years. Testing frequency can be increased for patients who have rapidly progressing disease or for those who are receiving medical therapy to restore bone mass. Reviewed by: Jhony Jorge MD on 03/15/2020 11:47 AM PDT Approved by: Jhony Jorge MD on 03/15/2020 11:47 AM PDT Station ID: [id number]
== END 2020-03-15 10:52 | disposition home or self-care (01) ==
LOC: DI 10:51
PROVIDERS: ATTEND Family Medicine
DX: M85.88 Other specified disorders of bone density and structure, other site (principal)
CPT/HCPCS: 77080

== ENCOUNTER 2020-07-28 14:48 | Outpatient (CLI) | payer MEDICARE ==
--- NOTE | 2020-07-29 11:45 | Mammography Report ---
BILATERAL DIGITAL SCREENING MAMMOGRAM 3D/2D: 07/28/2020 CLINICAL: Routine screening. Comparison is made to exams dated: 07/31/2019 mammogram, 06/19/2018 mammogram, 03/06/2018 mammogram, mammogram, 05/09/2015 mammogram, and 04/13/2014 mammogram - [facility]. The tissue of both breasts is predominantly fatty. There is a new asymmetry with fine calcifications in the left breast central to the nipple anterior d epth. No other significant masses, calcifications, or other findings are seen in either breast. IMPRESSION: INCOMPLETE: NEEDS ADDITIONAL IMAGING EVALUATION The new asymmetry in the left breast is indeterminate. Additional views with possible ultrasound are recommended. This exam was interpreted at Station ID: [id number]. NOTE: For mammograms, a report in lay terms will be sent to the patient. Approximately 15% of breast malignancies will not be visualized mammographically. In the management of a palpable breast mass, a negative mammogram must not discourage biopsy of a clinically suspicious lesion. Electronically Signed By: Jhony Jorge M.D., jr/delfino:07/28/2020 15:42:33 ACR BI-RADS Category 0: Incomplete 3340F PARENCHYMAL PATTERN: (F) - The breast(s) demonstrate(s) diffuse fatty replacement. BI-RADS CATEGORY: (0) - 0 Mammo and [place] [id number] Immediate follow-up LATERALITY: (B)
== END 2020-07-28 14:49 | disposition home or self-care (01) ==
LOC: DI.N 14:48
DX: Z12.31 Encounter for screening mammogram for malignant neoplasm of breast (principal); R92.8 Other abnormal and inconclusive findings on diagnostic imaging of breast
CPT/HCPCS: 77063; 77067

== ENCOUNTER 2020-09-29 09:45 | Outpatient (CLI) | payer MEDICARE ==
--- NOTE | 2020-09-30 07:40 | Mammography Report ---
UNILATERAL LEFT DIGITAL DIAGNOSTIC MAMMOGRAM 3D/2D: 09/29/2020 CLINICAL: Patient returns for magnification views of microcalcifications in the left breast. Comparison is made to exams dated: 07/31/2019 mammogram, 06/19/2018 mammogram, 03/06/2018 mammogram, a nd 03/01/2017 mammogram - [facility]. The tissue of left breast is predominantly fa tty. There is an asymmetry in the left breast central to the nipple anterior depth on the screening exam. This is not seen in additional views. No other significant masses or calcifications are seen in the breast. IMPRESSION: BENIGN The asymmetry seen on screeing mammogram in the left breast is benign. There is no mammographic evidence of malignancy. Return to annual mammogram screening schedule is rec ommended. This exam was interpreted at Station ID: [id number]. NOTE: For mammograms, a report in lay terms will be sent to the patient. Approximately 15% of breast malignancies will not be visualized mammographically. In the management of a palpable breast mass, a negative mammogram must not discourage biopsy of a clinically suspicious lesion. Electronically Signed By: Barry Rushing acr/:09/29/2020 10:42:35 ACR BI-RADS Category 2: Benign Finding(s) 3342F PARENCHYMAL PATTERN: (F) - The breast(s) demonstrate(s) diffuse fatty replacement. BI-RADS CATEGORY: (2) - 2 Mammogram [id number] return to screening LATERALITY: (B)
== END 2020-09-29 09:46 | disposition home or self-care (01) ==
LOC: DI 09:45
PROVIDERS: ATTEND Family Medicine
DX: R92.8 Other abnormal and inconclusive findings on diagnostic imaging of breast (principal)

== ENCOUNTER 2021-01-17 08:00 | Outpatient (CLI) | payer MEDICARE ==
[2021-01-17 12:10] LABS: BASOPHILS # (AUTO) 0.1 10^3/uL (0.0-0.1); BASOPHILS % (AUTO) 0.7 %; EOSINOPHILS # (AUTO) 0.2 10^3/uL (0.0-0.7); EOSINOPHILS % (AUTO) 3.5 %; HCT - HEMATOCRIT 46.1 % (37.0-47.0); HGB - HEMOGLOBIN 14.7 g/dL (12.0-16.0); LYMPHOCYTES # (AUTO) 2.4 10^3/uL (1.5-3.5); LYMPHOCYTES % (AUTO) 34.7 %; MEAN CORPUSCULAR HEMOGLOBIN 29.4 pg (27.0-31.0); MEAN CORPUSCULAR HGB CONC 31.9 g/dL (32.0-36.0); MEAN CORPUSCULAR VOLUME 92.2 fL (81.0-99.0); MEAN PLATELET VOLUME 11.1 fL (7.9-10.8); MONOCYTES # (AUTO) 0.5 10^3/uL (0.0-1.0); MONOCYTES % (AUTO) 7.5 %; NEUTROPHILS # (AUTO) 3.7 10^3/uL (1.5-6.6); NEUTROPHILS % (AUTO) 53.5 %; PLT - PLATELET COUNT 253 10^3/uL (130-450); RED CELL DISTRIBUTION WIDTH 13.4 % (12.0-15.0)
[2021-01-17 12:32] LABS: ALBUMIN 4.2 g/dL (3.2-5.5); ALBUMIN/GLOBULIN RATIO 1.4 (1.0-2.2); ALKALINE PHOSPHATASE 93 IU/L (42-121); ALT ALANINE AMINOTRANSFERASE 35 IU/L (10-60); AST ASPARTATE AMINOTRANSFERASE 29 IU/L (10-42); BILIRUBIN,TOTAL 0.7 mg/dL (0.2-1.0); BUN - BLOOD UREA NITROGEN 25 mg/dL (6-20); CALCIUM 9.3 mg/dL (8.5-10.3); CARBON DIOXIDE - CO2 24 mmol/L (21-32); CHLORIDE 110 mmol/L (101-111); CHOL/HDL RATIO 3.5 (<4.4); CHOLESTEROL 209 mg/dL; CREATININE 1.2 mg/dL (0.4-1.0); GFR - MDRD 44 (>89); GLUCOSE 106 mg/dL (70-100); HDL CHOLESTEROL 60 mg/dL; LDL CHOLESTEROL,CALCULATED 126 mg/dL; LDL/HDL RATIO 2.1 (<4.4); POTASSIUM 4.7 mmol/L (3.5-5.0); SODIUM 143 mmol/L (135-145); TOTAL PROTEIN 7.2 g/dL (6.7-8.2); TRIGLYCERIDES 117 mg/dL; VLDL CHOLESTEROL 23 mg/dL
== END 2021-01-17 23:59 | disposition home or self-care (01) ==
LOC: LAB.WCP 08:00
PROVIDERS: ATTEND Family Medicine
DX: I10 Essential (primary) hypertension (principal); E78.5 Hyperlipidemia, unspecified
CPT/HCPCS: 36415; 80053; 80061; 83721; 85025

== ENCOUNTER 2021-03-13 12:58 | Outpatient (CLI) | payer MEDICARE ==
--- NOTE | 2021-03-13 13:52 | XRAY Report ---
PROCEDURE: Shoulder 3 View LT INDICATIONS: ARTHRITIS, L SHOULDER TECHNIQUE: 4 views of the shoulder were acquired. COMPARISON: None. FINDINGS: Bones: No fractures or dislocations. Severe glenohumeral joint osteoarthritic changes are seen. Mod erate acromioclavicular joint osteoarthritis is also noted. No suspicious bony lesions. Visualized r ibs appear intact. Soft tissues: No suspicious soft tissue calcifications. IMPRESSION: Severe glenohumeral joint osteoarthritis and moderate acromioclavicular joint osteoarthr itis. No fracture or dislocation. Reviewed by: Garo Boss MD on 03/13/2021 1:51 PM PDT Approved by: Garo Boss MD on 03/13/2021 1:51 PM PDT Station ID: [id number]
== END 2021-03-13 23:59 | disposition home or self-care (01) ==
LOC: DI.N 12:58
PROVIDERS: ATTEND Physician Assistant
DX: M19.012 Primary osteoarthritis, left shoulder (principal)

== ENCOUNTER 2021-04-27 10:17 | Outpatient (CLI) | payer MEDICARE | END 2021-04-27 10:18 | disposition home or self-care (01) | LOC: DI 10:17 | PROVIDERS: ATTEND Family Medicine | DX: I35.0 Nonrheumatic aortic (valve) stenosis (principal); I11.9 Hypertensive heart disease without heart failure | CPT/HCPCS: 93306 ==

== ENCOUNTER 2021-05-16 08:46 | Outpatient (CLI) | payer MEDICARE ==
--- NOTE | 2021-05-16 11:49 | CT Report ---
PROCEDURE: UPPER EXTREMITY WO - LT INDICATIONS: LEFT SHOULDER OSTEOARTHRITIS TECHNIQUE: Noncontrast 3 mm axial sections acquired of the , with coronal and sagittal reformats. COMPARISON: Films of the left shoulder dated 03/13/2021 FINDINGS: Image quality: Excellent. Bones: No acute fracture nor osseous lesion. Moderate periarticular osteophyte formation at the, cla vicular joint. Severe periarticular osteophyte formation at the glenohumeral joint. Soft tissues: Visualized lung parenchyma and soft tissues are grossly unremarkable. IMPRESSION: Acromioclavicular and glenohumeral joint osteoarthritis. Reviewed by: Jorge Munguia MD on 05/16/2021 11:48 AM PDT Approved by: Jorge Munguia MD on 05/16/2021 11:48 AM PDT Station ID: [id number]
== END 2021-05-16 08:47 | disposition home or self-care (01) ==
LOC: DI 08:46
PROVIDERS: ATTEND Orthopaedic Surgery
DX: M19.012 Primary osteoarthritis, left shoulder (principal)

== ENCOUNTER 2021-06-19 08:30 | Outpatient (CLI) | payer MEDICARE ==
[2021-06-19 12:22] LABS: BASOPHILS % (AUTO) 0.5 %; EOSINOPHILS # (AUTO) 0.3 10^3/uL (0.0-0.7); HCT - HEMATOCRIT 44.8 % (37.0-47.0); HGB - HEMOGLOBIN 14.1 g/dL (12.0-16.0); LYMPHOCYTES # (AUTO) 2.8 10^3/uL (1.5-3.5); LYMPHOCYTES % (AUTO) 36.1 %; MEAN CORPUSCULAR HEMOGLOBIN 29.9 pg (27.0-31.0); MEAN CORPUSCULAR HGB CONC 31.5 g/dL (32.0-36.0); MEAN CORPUSCULAR VOLUME 94.9 fL (81.0-99.0); MEAN PLATELET VOLUME 10.5 fL (7.9-10.8); MONOCYTES # (AUTO) 0.6 10^3/uL (0.0-1.0); MONOCYTES % (AUTO) 7.1 %; PLT - PLATELET COUNT 256 10^3/uL (130-450); RED BLOOD COUNT 4.72 10^6/uL (4.20-5.40); RED CELL DISTRIBUTION WIDTH 13.3 % (12.0-15.0); WHITE BLOOD COUNT 7.7 x10^3/uL (4.8-10.8)
[2021-06-19 13:23] LABS: ALBUMIN 3.9 g/dL (3.2-5.5); ALBUMIN/GLOBULIN RATIO 1.3 (1.0-2.2); BILIRUBIN,TOTAL 0.4 mg/dL (0.2-1.0); CALCIUM 9.2 mg/dL (8.5-10.3); CREATININE 1.1 mg/dL (0.4-1.0); POTASSIUM 4.1 mmol/L (3.5-5.0); TOTAL PROTEIN 6.8 g/dL (6.7-8.2)
[2021-06-19 13:54] LABS: ESTIMATED AVERAGE GLUCOSE 123 mg/dL (70-100); HEMOGLOBIN A1c% 5.9 % (4.27-6.07)
== END 2021-06-19 23:59 | disposition home or self-care (01) ==
LOC: LAB.WCP 08:30
PROVIDERS: ATTEND Family Medicine
DX: M19.012 Primary osteoarthritis, left shoulder (principal); E66.9 Obesity, unspecified; I35.0 Nonrheumatic aortic (valve) stenosis
CPT/HCPCS: 36415; 80053; 83036; 85025

== ENCOUNTER 2021-07-12 05:54 | Day surgery (SDC) | payer MEDICARE ==
[2021-07-12] MEDS ORDERED: ACETAMINOPHEN 500 MG TABLET PO ONE (06:18)
[2021-07-12] MEDS ORDERED: CEFAZOLIN SODIUM IN 0.9 % NACL 2 GM/100 ML BAG IV ONE (06:18)
[2021-07-12] MEDS ORDERED: CELECOXIB 100 MG CAPSULE PO ONE (06:19)
[2021-07-12] MEDS ORDERED: DEXAMETHASONE 10 MG/ML VIAL ONE (06:19)
[2021-07-12] MEDS ORDERED: PROPOFOL 200 MG/20 ML VIAL IVP ONE ×2 (06:58→09:25)
[2021-07-12] MEDS ORDERED: MIDAZOLAM 2 MG/2 ML VIAL ONE (06:59)
[2021-07-12] MEDS ORDERED: fentaNYL 100 MCG/2 ML VIAL ONE ×2 (06:59→10:47)
[2021-07-12] MEDS ORDERED: ROCURONIUM 50 MG/5 ML VIAL ONE (07:00)
[2021-07-12] MEDS ORDERED: LIDOCAINE-MPF 2% 5 ML VIAL ONE (07:00)
[2021-07-12] MEDS ORDERED: ONDANSETRON 4 MG/2 ML VIAL ONE (07:01)
[2021-07-12] MEDS ORDERED: DEXAMETHASONE 4 MG/ML VIAL ONE (07:01)
[2021-07-12] MEDS ORDERED: TRANEXAMIC ACID 1,000 MG/10 ML VIAL ONE ×2 (07:02→11:07)
[2021-07-12] MEDS ORDERED: DOCUSATE SODIUM 100 MG CAPSULE PO PRN (07:17)
[2021-07-12] MEDS ORDERED: SODIUM CHLORIDE FLUSH 0.9% 10 ML SYRINGE IVP PRN (07:17)
[2021-07-12] MEDS ORDERED: MORPHINE 2 MG/ML CARPUJECT IVP PRN ×2 (07:17→07:49)
[2021-07-12] MEDS ORDERED: ONDANSETRON 4 MG/2 ML VIAL IVP PRN ×2 (07:17→07:49)
[2021-07-12] MEDS ORDERED: THROMBIN (BOVINE) 5,000 UNIT VIAL TOP ONE ×2 (07:27→08:40)
[2021-07-12] MEDS ORDERED: fentaNYL 100 MCG/2 ML VIAL IVP PRN (07:49)
[2021-07-12] MEDS ORDERED: NALOXONE 0.4 MG/ML VIAL IVP PRN (07:49)
[2021-07-12] MEDS ORDERED: HYDROmorphone 0.5 MG/0.5 ML SYRINGE IVP PRN (07:49)
[2021-07-12] MEDS ORDERED: ATROPINE ABBOJECT 1 MG/10 ML SYRINGE IVP PRN (07:49)
[2021-07-12] MEDS ORDERED: ePHEDrine 50 MG/ML VIAL IVP PRN (07:49)
[2021-07-12] MEDS ORDERED: METOCLOPRAMIDE 10 MG/2 ML VIAL IVP PRN (07:49)
--- NOTE | 2021-07-12 07:49 | ANESTHESIA ---
Pre-Anesthesia VS, & Labs - Diagnosis L shoulder OA - Procedure L TSA Vital Signs: Temp Pulse Resp BP Pulse Ox 36.2 C L 97 17 140/66 H 98 07/12/21 06:19 07/12/21 06:19 07/12/21 06:19 07/12/21 06:19 07/12/21 06:19 Height: 5 ft 5 in Weight (kg): 102.9 kg Body Mass Index: 37.7 BMI Classification: Obese - NPO Last Fluid Intake: 529 - Is Patient ?: No - Lab Results Lab results reviewed: Yes Home Medications and Allergies Home Medications: Ambulatory Orders Amlodipine Besylate [Norvasc] 10 mg PO DAILY 07/06/21 Azelastine HCl 1 drops EACHEYE BID PRN 07/06/21 Calcium Carbonate/Vitamin D3 [Calcium 600-Vit D3 200 Tablet] 1 each PO BID 07/06/21 Diclofenac Sodium [Arthritis Pain] 2 - 4 gm TP QID PRN 07/06/21 Famotidine [Pepcid] 20 mg PO DAILY 07/06/21 Fluticasone Propionate 1 spray NS BID 07/06/21 Levocetirizine Dihydrochloride 5 mg PO DAILY 07/06/21 Losartan Potassium [Cozaar] 100 mg PO DAILY 07/06/21 Omeprazole 20 mg PO DAILY 07/06/21 Triamcinolone Acetonide 0.1% [Triamcinolone Acetonide] 1 applic TP BID PRN 07/06/21 Active Medications Acetaminophen (Acetaminophen 500 Mg Tablet) 1,000 mg PO Q6HR [facility] Alcohol (Ethyl Alcohol 62% Swab Ampule) 1 amp AYSHA BID [facility] Aspirin (Aspirin Ec 81 Mg Tablet) 81 mg PO BID [facility] Celecoxib (Celecoxib 100 Mg Capsule) 200 mg PO BID [facility] Docusate Sodium (Docusate Sodium 100 Mg Capsule) 100 mg PO BID PRN PRN Reason: Constipation Cefazolin Sodium 2 gm/ Sodium (Chloride) 100 mls @ 200 mls/hr IV Q8HR [facility] Stop: 07/12/21 22:29 Potassium Chloride/Sodium Chloride (Normal Saline 0.9% W/20 Meq Kcl) 1,000 mls @ 100 mls/hr IV .Q10H [facility] Morphine Sulfate (Morphine 2 Mg/Ml Carpuject) 2 mg IVP Q2HR PRN PRN Reason: PAIN Ondansetron HCl (Ondansetron 4 Mg/2 Ml Vial) 4 mg IVP Q6HR PRN PRN Reason: Nausea / Vomiting Oxycodone HCl (Oxycodone 5 Mg Tablet) 5 mg PO Q6HR PRN PRN Reason: PAIN Sodium Chloride (Sodium Chloride Flush 0.9% 10 Ml Syringe) 10 ml IVP PRN PRN PRN Reason: NEEDED PER PROVIDER ORDERS Sodium Chloride (Sodium Chloride Flush 0.9% 10 Ml Syringe) 10 ml IVP 0100,0900,1700 [facility] Acetaminophen [Tylenol] 650 mg PO Q6H PRN 11/09/13 Meloxicam [Mobic] 7.5 mg PO BID 11/09/13 Oxybutynin Chloride [Oxybutynin Chloride ER] 10 mg PO BID 11/09/13 Pravastatin Sodium 40 mg PO QPM 11/09/13 Aspirin [Aspir-Low] 81 mg PO DAILY 08/30/16 Multivitamin [Multiple Vitamins] 1 each PO DAILY 12/18/18 Amlodipine Besylate [Norvasc] 10 mg PO DAILY 07/06/21 Azelastine HCl 1 drops EACHEYE BID PRN 07/06/21 Calcium Carbonate/Vitamin D3 [Calcium 600-Vit D3 200 Tablet] 1 each PO BID 07/06/21 Diclofenac Sodium [Arthritis Pain] 2 - 4 gm TP QID PRN 07/06/21 Famotidine [Pepcid] 20 mg PO DAILY 07/06/21 Fluticasone Propionate 1 spray NS BID 07/06/21 Levocetirizine Dihydrochloride 5 mg PO DAILY 07/06/21 Losartan Potassium [Cozaar] 100 mg PO DAILY 07/06/21 Omeprazole 20 mg PO DAILY 07/06/21 Triamcinolone Acetonide 0.1% [Triamcinolone Acetonide] 1 applic TP BID PRN 07/06/21 Allergies/Adverse Reactions: Allergies Allergy/AdvReac Type Severity Reaction Status Date / Time No Known Drug Allergies Allergy Verified 11/09/13 15:40 Anes History & Medical History - Anesthetic History Anesthesia Complications: reports: No previous complications Family history of Anesthesia Complications: Denies Family history of Malignant Hyperthermia: Denies - Medical History Cardiovascular: reports: Hypertension, High cholesterol, Murmur Pulmonary: reports: None Gastrointestinal: reports: GERD Urinary: reports: Incontinence Musculoskeletal: reports: Osteoarthritis, Chronic back pain, Other Endocrine/Autoimmune: reports: None Skin: reports: Eczema - Surgical History General: reports: Colonoscopy Eyes Ears Nose Throat (EENT): reports: Cataracts, Other Gynecologic: reports: Tubal ligation, Hysterectomy Orthopedic: reports: Other Exam General: Alert, Oriented x3, Cooperative Dental: WNL Mouth Openin Fingerbreadth Neck Mobility: Normal Thyromental Distance: 4-6 cm Respiratory: Lungs clear Cardiovascular: Regular rate, Other (systolic murmur) Neurological: Normal speech Mental/Cognitive Status: Alert/Oriented X3, Normal for patient Cognitive Status: Within normal limits Plan Anesthesia Type: General, Interscalene Block Regional Block: Per Surgeon's request for Post Op pain control Consent for Procedure(s) Verified and Reviewed: Yes Code Status: Attempt Resuscitation ASA classification: 3-Severe systemic disease Is this case an emergency?: No
[2021-07-12] MEDS ORDERED: LACTATED RINGERS 1,000 ML IV SCH (08:00)
[2021-07-12] MEDS ORDERED: VANCOMYCIN 1 GM VIAL ONE (08:47)
[2021-07-12] MEDS ORDERED: VANCOMYCIN 1 GM VIAL MC ONE (10:45)
--- NOTE | 2021-07-12 11:02 | OPERATIVE REPORT ---
Operative Report - General Procedure Date: 07/12/21 Planned Procedure: Left total shoulder arthroplasty Pre-Op Diagnosis: Osteoarthritis glenohumeral joint left shoulder Procedure Performed: Left total shoulder arthroplasty using the [employer] Titan total shoulder: Small fin lock glenoid, 13 humeral press-fit stem with 12 standard proximal body, 38 x 14 eccentric cobalt chrome humeral head Post Op Diagnosis: Same as preoperative diagnosis - Procedure Note Primary Surgeon: Alvaro Tavarez MD Secondary Surgeon: Drew FIELDS Anesthesia Provider: William Dumont CRNA Anesthesia Technique: General ET tube, Regional block Estimated Blood Loss (mL): 150 Indications: This is a 76-year-old woman with chronic and progressive pain to the left shoulder over the past few years. She has been treated nonoperatively and still has considerable pain, reduced motion and disability. She has had a previous right total shoulder arthroplasty with favorable outcome. Her routine x-rays and CT scan show advanced glenohumeral arthritis with some retroversion from posterior wear, osteophytes off the glenoid and humeral neck. Her rotator cuff seem to be intact clinically with intact strength. Findings: She had osteophytes about the humeral neck especially anteriorly and inferiorly. She had osteophytes about the glenoid anteriorly and posteriorly. There was complete loss of articular cartilage to the humeral head with flattening of the humeral head. There is complete loss of articular cartilage to the glenoid. The biceps tendon showed considerable tenosynovitis. The rotator cuff was intact. - Other Other Information/Narrative: After satisfactory anesthesia was achieved, the patient was placed in a supine position. She was placed in the beachchair and the head of the table was elevated about 30 degrees. The left shoulder and left upper extremity was prepped and draped in a sterile manner in the usual fashion. A triple skin prep was utilized: Betadine, hydrogen peroxide and finally alcohol/chlorhexidine. She received 2 g of Ancef intravenously and a gram of tranexamic acid. A timeout procedure was performed by the entire operating room team and all were in agreement. A delta pectoral incision was made. The incision was started approximately between the coracoid and the anterolateral acromion and extending it down to the mid arm distally near deltoid insertion. The cephalic vein and deltopectoral interval were identified. The cephalic vein was retracted medially with the pectoralis. The clavipectoral fascia was released and the coracoid muscles were gently retracted medially with a blunt Borrego retractor. The biceps tendon was identified and exposed within the bicipital groove. The tendon was tenodesed to the pectoralis with #1 Ethibond suture. The rotator interval and subscapularis were released longitudinally. The inferior and anterior capsule was released along the humeral neck staying directly against bone while externally rotating the arm. Care was taken to protect the axillary nerve and the muscular cutaneous nerve. Osteophytes inferiorly and anteriorly were removed with a rongeur. The humeral head was located anteriorly.A deltoid retractor was utilized as well as a superior retractor to sublux the head more anteriorly while protecting the rotator cuff. The humeral canal was opened posterior to the bicipital groove. The fuel pilot engineer reamer was used to assemble the cutting guide which was placed in 30 degrees of retroversion. Care was taken to protect the rotator cuff with the cutting guide. The osteotomy was performed with an oscillating saw and completed with an osteotome. The head size measured approximately 38 mm in diameter. A osteotomy Was placed to protect the neck during retraction and exposure of the glenoid. A posterior and inferior glenoid retractor was inserted, displacing the head posteriorly. A trimano arm beltre had been utilized throughout the procedure.The glenoid was circumferentially exposed, removing osteophytes, removing any remnants of the labrum and detaching the biceps anchor superiorly. The subscapularis was released by mobilizing against the glenoid anteriorly. An anterior retractor had been inserted. The size of the glenoid was determined. The central hole was made and initially marked with Bovie. The glenoid guide was inserted and a central drill hole was made over the cannulated guide which had bicortical purchase. Reaming was then done with the cannulated glenoid reamer trying to create a concentric surface and light decortication. Peripheral hole preparation was performed using a peg hole guide: 1 superior and 2 inferior holes for the glenoid component. The peg hole impactor was then utilized. The holes were checked for cortical perforation and all the holes were intact. The holes were cleaned with hydrogen peroxide and saline. Gelfoam and thrombin was then used to place within the peg holes of the glenoid. These were removed and cement was placed with a syringe into the peripheral holes to allow impaction of the fin lock small glenoid component. The glenoid component fit very well, no instability in any plane.Next the humerus was positioned. The head was exposed with a deltoid retractor, a Darrach retractor superiorly and a small blunt Hohmann mediallyProgressive broaching of the canal was achieved in the final broach was a 13 stem with the standard size. The head size was determined, and eccentric head was necessary to provide the best coverage. Broaching was done with 30 degrees retroversion. A trial reduction was performed and the glenohumeral joint was stable and had good motion. The stem was removed. 2 Arthrex all suture tack anchors with 4 strands of suture and needles were inserted and lesser tuberosity to help strengthen the subscapularis tendon repair. The humeral stem was gently impacted and aligned with 30 degrees of retroversion version. This was left 2 mm proud. The eccentric humeral head was impacted and the prosthesis was fully seated. Two #1 Ethibond sutures had been placed through the suture holes in the prosthesis. The glenohumeral joint was reduced and had 120 degrees of flexion full internal rotation to chest, external rotation to 35 to 40 degrees. There was a spring back with posterior subluxation of the shoulder indicating good stability. The subscapularis was repaired with the fiber tack suture and #1 Ethibond attached to the prosthesis. This allowed for at least 5 sutures to be placed through the subscapularis which approximated very well. A very secure repair of the subscapularis and rotator interval was achieved. The wound was irrigated with dilute Betadine prior to the subscapularis closure. A gram of vancomycin powder was inserted. The deltopectoral fascia was closed with 2 oh strata fix. The subcutaneous tissue was closed with 2 oh strata fix. The skin was closed with a 3-0 Monocryl subcuticular suture. The patient tolerated the procedure well. A physician family assistant was utilized, felt to be medically necessary to help provide exposure, protection of vital structures and facilitate preparation of the glenoid and humerus for prosthetic replacement. A sterile dressing was applied to the left shoulder with a silver impregnated dressing and a sling.
[2021-07-12] MEDS ORDERED: LACTATED RINGERS 1,000 ML IV ONE (11:25)
--- NOTE | 2021-07-12 12:27 | ANESTHESIA POST OP EVALUATION ---
Anesthesia Post Eval - Post Anesthesia Eval Vitals: Last Vital Signs Temp 36.4 C L 07/12/21 12:21 Pulse 82 07/12/21 12:21 Resp 17 07/12/21 12:21 BP 118/65 07/12/21 12:21 Pulse Ox 93 07/12/21 12:21 CV Function Including HR & BP: Stable Pain Control: Satisfactory Nausea & Vomiting: Negative Mental Status: Baseline Respiratory Status: Airway Patent Hydration Status: Satisfactory Anesthesia Complications: None
[2021-07-12] MEDS: ACETAMINOPHEN 500 MG TABLET PO SCH ×3 (12:34→23:25)
[2021-07-12] MEDS: CELECOXIB 100 MG CAPSULE PO SCH ×2 (12:34→21:01)
[2021-07-12] MEDS: ASPIRIN EC 81 MG TABLET PO SCH ×2 (12:35→21:00)
[2021-07-12] MEDS: ethyl alcohoL 62% SWAB AMPULE NAS SCH ×2 (12:35→21:01)
[2021-07-12] MEDS: NS W/20 MEQ KCL 1,000 ML IV SCH (12:36)
[2021-07-12] MEDS: SODIUM CHLORIDE FLUSH 0.9% 10 ML SYRINGE IVP SCH ×3 (12:36→23:26)
[2021-07-12] MEDS ORDERED: ceFAZolin 2 GM in SODIUM CHLORIDE 0.9% 100ML 100 ML IV SCH (14:00)
[2021-07-12] MEDS: CEFAZOLIN SODIUM IN 0.9 % NACL 2 GM/100 ML BAG IV SCH ×2 (14:11→21:18)
[2021-07-12] MEDS: BENZOCAINE/MENTHOL LOZENGE MM PRN ×3 (14:35→23:26)
--- NOTE | 2021-07-12 15:28 | XRAY Report ---
PROCEDURE: Shoulder 1 View LT INDICATIONS: Postop TECHNIQUE: 1 views of the shoulder were acquired. COMPARISON: CT upper extremity 3121 FINDINGS: Bones: No fractures or dislocations. No suspicious bony lesions. Visualized ribs appear intact. R ight shoulder arthroplasty is present. Hardware appears intact and in good anatomic position, as seen on single view. Soft tissues: No suspicious soft tissue calcifications. IMPRESSION: Postoperative arthroplasty changes as above. Reviewed by: Maria Elena Rojas MD on 07/12/2021 3:26 PM PDT Approved by: Maria Elena Rojas MD on 07/12/2021 3:26 PM PDT Station ID: [id number]
--- NOTE | 2021-07-12 17:24 | CONSULTATION NOTE ---
Referring Provider Name of Referring Provider:: Dr Alvaro Tavarez Consult Date: 07/12/21 Chief Complaint - Chief Complaint Chief Complaint: Medical management History of Present Illness - Admitted From Admitted From:: [facility] - History Obtained From Records Reviewed: yes History obtained from: patient - History of Present Illness HPI Comment/Other: Patient is a 76-year-old female with medical history significant for mild aortic stenosis, arthritis, seasonal allergies, hypertension and hyperlipidemia who was admitted today by the orthopedic service for an elective left total shoulder arthroplasty. The surgery was successful, uneventful and done by Dr. Alvaro Tavarez. The hospitalist service was consulted for medical management. At bedside the patient is seated in the bedside chair and resting comfortably. She denies any pain but reports slight numbness in her left upper extremity. She was given a nerve block prior to the procedure. It was reported by anesthesia and surgery that the block would probably last through the night and wear of the following morning. She denied chest pain, dyspnea, abdominal pain, nausea, vomiting, fever or chills. She has some lower extremity edema. The rest of her history is unremarkable. History - Past Medical History Cardiovascular: reports: Hypertension, High cholesterol, Murmur, Other (Mild aortic stenosis) Respiratory: reports: None Endocrine/Autoimmune: reports: None GI: reports: GERD : reports: Incontinence HEENT: reports: Chronic vision loss Psych: reports: Claustrophobia Musculoskeletal: reports: Osteoarthritis, Chronic back pain, Other Derm: reports: Eczema MRSA Hx?: No Other Past Medical History: Allergies to pollen and dust. 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 Patient's aunt, uncle and sister all had diabetes. Social History Notes: She lives alone in an apartment but has a friend who checks on her regularly. She does not consume tobacco products, alcohol or recreational substances. She is independent of activities of daily living. She walks without a walking aid but has a walker in case she needs it. - POLST Patient has POLST: No POLST Status: Full Code Meds/Allgy - Home Medications Home Medications: Ambulatory Orders Medication Instructions Recorded Confirmed Acetaminophen [Tylenol] 650 mg PO Q6H PRN 11/09/13 07/12/21 Meloxicam [Mobic] 7.5 mg PO BID 11/09/13 07/12/21 Oxybutynin Chloride [Oxybutynin 10 mg PO BID 11/09/13 07/12/21 Chloride ER] Pravastatin Sodium 40 mg PO QPM 11/09/13 07/12/21 Aspirin [Aspir-Low] 81 mg PO DAILY 08/30/16 07/12/21 Multivitamin [Multiple Vitamins] 1 each PO DAILY 12/18/18 07/12/21 Amlodipine Besylate [Norvasc] 10 mg PO DAILY 07/06/21 07/12/21 Azelastine HCl 1 drops EACHEYE BID PRN 07/06/21 07/06/21 Calcium Carbonate/Vitamin D3 1 each PO BID 07/06/21 07/12/21 [Calcium 600-Vit D3 200 Tablet] Diclofenac Sodium [Arthritis Pain] 2 - 4 gm TP QID PRN 07/06/21 07/06/21 Famotidine [Pepcid] 20 mg PO DAILY 07/06/21 07/12/21 Fluticasone Propionate 1 spray NS BID 07/06/21 07/12/21 Levocetirizine Dihydrochloride 5 mg PO DAILY 07/06/21 07/12/21 Losartan Potassium [Cozaar] 100 mg PO DAILY 07/06/21 07/12/21 Omeprazole 20 mg PO DAILY 07/06/21 07/12/21 Triamcinolone Acetonide 0.1% 1 applic TP BID PRN 07/06/21 07/06/21 [Triamcinolone Acetonide] - Allergies Allergies/Adverse Reactions: Allergies Allergy/AdvReac Type Severity Reaction Status Date / Time No Known Drug Allergies Allergy Verified 11/09/13 15:40 Review of Systems - Constitutional Constitutional: denies: Fatigue, Fever, Chills - Eyes Eyes: denies: Pain, Dipolpia - Ears, Nose & Throat Ears, Nose & Throat: reports: Sore throat (due to intubation) - Cardiovascular Cariovascular: reports: Edema. denies: Irregular heart rate, Palpitations, Chest pain, Lightheadedness, Syncope - Respiratory Respiratory: denies: Cough, Sputum production, Wheezing, SOB at rest, SOB with exertion, Pleuritic pain - Gastrointestinal Gastrointestinal: denies: Abdominal pain, Abdominal distention, Constipation, Diarrhea, Nausea, Vomiting - Genitourinary Genitourinary: denies: Dysuria, Frequency, Urgency, Hematuria - Musculoskeletal Musculoskeletal: denies: Muscle pain, Back pain, Muscle aches - Integumentary Integumentary: denies: Rash, Pruritis, Lesions, Dryness - Neurological Neurological: reports: Numbness (Left Upper extremity from nerve block). denies: General weakness, Focal weakness, Headache, Dizziness - Psychiatric Psychiatric: denies: Depression, Anxiety, Suicidal - Endocrine Endocrine: denies: Polyuria, Polydypsia - Hematologic/Lymphatic Hematologic/Lymphatic: denies: Anemia, Bruising, Petechiae Exam - Vital Signs Vital Signs: Vital Signs x48h Temp Pulse Pulse Pulse Pulse Pulse Resp 07/12/21 15:45 36.5 C 94 16 07/12/21 15:44 36.5 C 94 16 07/12/21 15:05 36.5 C 97 16 07/12/21 14:06 36.6 C 100 18 07/12/21 14:00 98 108 H 87 07/12/21 13:49 36.5 C 85 16 07/12/21 13:47 37.1 C 87 16 07/12/21 13:36 37.1 C 70 16 07/12/21 13:06 36.4 C L 88 16 07/12/21 12:51 36.2 C L 83 16 07/12/21 12:36 36.4 C L 89 17 07/12/21 12:21 36.4 C L 82 17 07/12/21 12:10 36.9 C 85 16 07/12/21 12:05 36.9 C 85 15 07/12/21 12:00 37 C 83 15 07/12/21 11:55 37 C 81 18 07/12/21 11:50 37 C 83 17 07/12/21 11:45 37 C 87 14 07/12/21 11:40 36.7 C 85 15 07/12/21 11:36 37.3 C 78 13 07/12/21 11:31 37.2 C 80 14 07/12/21 11:25 37 C 82 15 07/12/21 11:22 36.8 C 73 15 BP BP BP BP BP Pulse Ox 07/12/21 15:45 108/65 93 07/12/21 15:44 108/65 93 07/12/21 15:05 114/67 93 07/12/21 14:06 113/69 94 07/12/21 14:00 113/69 122/83 H 112/57 L 07/12/21 13:49 112/57 L 92 07/12/21 13:47 104/53 L 92 07/12/21 13:36 104/53 L 91 L 07/12/21 13:06 111/61 92 07/12/21 12:51 114/74 93 07/12/21 12:36 108/65 92 07/12/21 12:21 118/65 93 07/12/21 12:10 120/64 96 07/12/21 12:05 121/64 96 07/12/21 12:00 111/66 96 07/12/21 11:55 118/65 95 07/12/21 11:50 109/62 96 07/12/21 11:45 107/59 L 96 07/12/21 11:40 110/63 96 07/12/21 11:36 109/57 L 98 07/12/21 11:31 112/63 99 07/12/21 11:25 105/58 L 100 07/12/21 11:22 113/54 L 98 - Physical Exam General Appearance: positive: No acute distress, Alert Eyes Bilateral: positive: PERRL, EOMI ENT: negative: No signs of dehydration Neck: positive: Trachea midline. negative: No JVD Respiratory: positive: Chest non-tender, No respiratory distress, Breath sounds nml. negative: Wheezes, Rales, Rhonchi Cardiovascular: positive: Regular rate & rhythm, Systolic murmur Abdomen: negative: Non-tender, No organomegaly, Nml bowel sounds, No distention, Guarding, Rebound Back: positive: Nml inspection, CVA tenderness (R) Skin: positive: Color nml, No rash, Warm, Dry. negative: Cyanosis Extremities: positive: Non-tender, Full ROM, Nml appearance, No pedal edema Neurologic/Psychiatric: positive: Oriented x3, Mood/affect nml Conclusion/Plan - Problem List (1) Arthritis of left shoulder region Conclusion/Plan: Status post left total shoulder arthroplasty. This was done by Dr. Alvaro Hill. Surgery was uneventful and successful. PT/OT to work with patient in the morning. Pain management as needed. (2) Mild aortic stenosis Conclusion/Plan: Mild. Stable. Patient asymptomatic. Patient will continue following up with her inside solar sales consultant in the outpatient setting. (3) Hypertension Conclusion/Plan: Will resume patient's losartan and amlodipine (4) Hyperlipidemia Conclusion/Plan: On pravastatin 40 mg p.o. every afternoon. - Lab Results Lab results reviewed: Yes Fish Bones: 07/12/21 17:35 07/12/21 17:35
[2021-07-12 17:39] LABS: BASOPHILS % (AUTO) 0.2 %; EOSINOPHILS # (AUTO) 0.2 10^3/uL (0.0-0.7); EOSINOPHILS % (AUTO) 0.9 %; HCT - HEMATOCRIT 42.8 % (37.0-47.0); HGB - HEMOGLOBIN 13.8 g/dL (12.0-16.0); LYMPHOCYTES # (AUTO) 1.2 10^3/uL (1.5-3.5); LYMPHOCYTES % (AUTO) 7.2 %; MEAN CORPUSCULAR HGB CONC 32.2 g/dL (32.0-36.0); MONOCYTES # (AUTO) 0.3 10^3/uL (0.0-1.0); MONOCYTES % (AUTO) 1.7 %; NEUTROPHILS # (AUTO) 15.3 10^3/uL (1.5-6.6); NEUTROPHILS % (AUTO) 89.7 %; PLT - PLATELET COUNT 246 10^3/uL (130-450); RED CELL DISTRIBUTION WIDTH 13.4 % (12.0-15.0); WHITE BLOOD COUNT 17.1 x10^3/uL (4.8-10.8)
[2021-07-12 17:55] LABS: CALCIUM 9.2 mg/dL (8.5-10.3); CREATININE 1.4 mg/dL (0.4-1.0); POTASSIUM 4.9 mmol/L (3.5-5.0)
[2021-07-12] MEDS ORDERED: ACETAMINOPHEN 325 MG TABLET PO PRN (18:12)
[2021-07-12] MEDS ORDERED: PRAVASTATIN 40 MG TABLET PO SCH (21:00)
[2021-07-12] MEDS: OXYBUTYNIN 5MG TABLET PO SCH (21:01)
[2021-07-12] MEDS: PHENOL THROAT SPRAY 177 ML MM PRN (21:01)
[2021-07-12] MEDS: oxyCODONE 5 MG TABLET PO PRN (23:25)
[2021-07-13] MEDS: NS W/20 MEQ KCL 1,000 ML IV SCH (01:21)
[2021-07-13] MEDS: oxyCODONE 5 MG TABLET PO PRN ×2 (05:29→11:52)
[2021-07-13] MEDS: ACETAMINOPHEN 500 MG TABLET PO SCH ×2 (05:29→11:51)
[2021-07-13 06:04] LABS: BASOPHILS % (AUTO) 0.1 %; HGB - HEMOGLOBIN 11.6 g/dL (12.0-16.0); LYMPHOCYTES % (AUTO) 7.8 %; MEAN CORPUSCULAR HEMOGLOBIN 31.2 pg (27.0-31.0); MEAN CORPUSCULAR HGB CONC 33.1 g/dL (32.0-36.0); MEAN CORPUSCULAR VOLUME 94.1 fL (81.0-99.0); MEAN PLATELET VOLUME 10.5 fL (7.9-10.8); MONOCYTES % (AUTO) 5.1 %; NEUTROPHILS % (AUTO) 86.5 %; PLT - PLATELET COUNT 205 10^3/uL (130-450); RED BLOOD COUNT 3.72 10^6/uL (4.20-5.40); RED CELL DISTRIBUTION WIDTH 13.5 % (12.0-15.0); WHITE BLOOD COUNT 20.3 x10^3/uL (4.8-10.8)
[2021-07-13 06:11] LABS: ABNORMAL LYMPHS % (MANUAL) 0 %; CREATININE 1.2 mg/dL (0.4-1.0); POTASSIUM 5.2 mmol/L (3.5-5.0)
[2021-07-13 06:31] LABS: BAND NEUTROPHILS % (MANUAL) 14 %; DIFFERENTIAL COMMENT MANUAL DIFFERENTIAL; LYMPHOCYTES % (MANUAL) 5 %; MONOCYTES # (MANUAL) 1.2 10^3/uL (0.0-1.0); NEUTROPHILS # (MANUAL) 18.1 10^3/uL (1.5-6.6); PLATELET ESTIMATE, MANUAL NORMAL (130-450,000) (NORMAL); RBC MORPHOLOGY (MULTIPLE) NORMAL APPEARANCE (NORMAL)
[2021-07-13] MEDS ORDERED: PANTOPRAZOLE 40 MG TABLET PO SCH (07:00)
--- NOTE | 2021-07-13 07:52 | PROVIDER PROGRESS NOTE ---
Assessment/Plan - Problem List (1) Arthritis of left shoulder region Assessment/Plan: Status post left total shoulder arthroplasty. POD#1 This was done by Dr. Alvaro Hill. Surgery was uneventful and successful. PT/OT to work with patient in the morning. Pain management as needed. Anticipating discharged today 07/13/21 Hospitalist service will sign off case. (2) Mild aortic stenosis Assessment/Plan: Mild. Stable. Patient asymptomatic. Patient will continue following up with her cobol engineer in the outpatient setting. (3) Hypertension Assessment/Plan: On losartan and amlodipine. (4) Hyperlipidemia Assessment/Plan: On pravastatin 40 mg p.o. every afternoon (5) Leukocytosis Assessment/Plan: White blood cell count today was 20. This is likely reactive. Also likely due to steroid administration prior to surgery. Patient is afebrile with no indication of infection. Anticipating improvement. Patient will follow up with her primary care physician within 1 week where it is expected that CBC will be repeated. (6) Hyperkalemia Assessment/Plan: Oddly elevated at 5.2. Patient had been on IV hydration containing potassium. Discontinued. Anticipating resolution. Patient has been instructed to follow-up with her primary care physician was expected that a BMP will be rechecked. - Current Meds Current Meds: Current Medications Generic Name Dose Route Start Last Admin Trade Name Freq PRN Reason Stop Dose Admin Acetaminophen 1,000 mg 07/12/21 12:00 07/13/21 05:29 Acetaminophen 500 Mg Tablet PO 1,000 mg Q6HR TIARRA Administration Alcohol 1 amp 07/12/21 09:00 07/12/21 21:01 Ethyl Alcohol 62% Swab Ampule AYSHA 1 amp BID TIARRA Administration Aspirin 81 mg 07/12/21 09:00 07/12/21 21:00 Aspirin Ec 81 Mg Tablet PO 81 mg BID TIARRA Administration Celecoxib 200 mg 07/12/21 09:00 07/12/21 21:01 Celecoxib 100 Mg Capsule PO 200 mg BID TIARRA Administration Oxybutynin Chloride 10 mg 07/12/21 21:00 07/12/21 21:01 Oxybutynin 5mg Tablet PO 10 mg BID TIARRA Administration Oxycodone HCl 5 mg 07/12/21 07:17 07/13/21 05:29 Oxycodone 5 Mg Tablet PO 5 mg Q6HR PRN Administration PAIN Pantoprazole Sodium 40 mg 07/13/21 07:00 07/13/21 06:38 Pantoprazole 40 Mg Tablet PO 40 mg QDAC TIARRA Administration Phenol/Menthol 2 sprays 07/12/21 20:32 07/12/21 21:01 Phenol Throat [place] 177 Ml MM 2 sprays Q2HR PRN Administration Throat Pain Pravastatin Sodium 40 mg 07/12/21 21:00 07/12/21 21:01 Pravastatin 40 Mg Tablet PO 40 mg QPM TIARRA Administration Sodium Chloride 10 ml 07/12/21 09:00 07/12/21 23:26 Sodium Chloride Flush 0.9% 10 Ml Syringe IVP 10 ml 0100,0900,1700 TIARRA Administration Throat Lozenges 1 lozenge 07/12/21 12:22 07/12/21 23:26 Benzocaine/Menthol Lozenge MM 1 lozenge Q2HR PRN Administration Throat pain - Lab Result Fish Bone Diagrams: 07/13/21 05:07 07/13/21 05:07 - Additional Planning My Orders: My Active Orders 07/12/21 21:00 Oxybutynin [Ditropan] 10 mg PO BID Pravastatin [Pravachol] 40 mg PO QPM 07/13/21 07:00 Pantoprazole [Protonix] 40 mg PO QDAC 07/13/21 09:00 Famotidine [Pepcid] 20 mg PO DAILY Losartan [Cozaar] 100 mg PO DAILY amLODIPine [Norvasc] 10 mg PO DAILY 07/14/21 05:00 BMP - BASIC METABOLIC PANEL [CHEM] DAILYLAB CBC - COMP BLD CT W/AUTO DIFF [HEME] DAILYLAB 07/15/21 05:00 BMP - BASIC METABOLIC PANEL [CHEM] DAILYLAB CBC - COMP BLD CT W/AUTO DIFF [HEME] DAILYLAB 07/16/21 05:00 BMP - BASIC METABOLIC PANEL [CHEM] DAILYLAB CBC - COMP BLD CT W/AUTO DIFF [HEME] DAILYLAB 07/17/21 05:00 BMP - BASIC METABOLIC PANEL [CHEM] DAILYLAB CBC - COMP BLD CT W/AUTO DIFF [HEME] DAILYLAB Subjective - Subjective Patient Reports: Other ( Patient resting comfortably in bed. She is able to move all her fingers without any difficulty. She reports mild pain. She denies any other complaints.) Objective Vital Signs: Vital Signs - 24 hr 07/12/21 07/12/21 07/12/21 11:22 11:25 11:31 Temperature 36.8 C 37 C 37.2 C Heart Rate 73 82 80 Heart Rate [ Activity] Heart Rate [ Brachial] Heart Rate [ Sitting] Heart Rate [ Supine] Respiratory 15 15 14 Rate Blood Pressure 113/54 L 105/58 L 112/63 Blood Pressure [Activity] Blood Pressure [Right Brachial artery] Blood Pressure [Sitting] Blood Pressure [Supine] O2 Saturation 98 100 99 07/12/21 07/12/21 07/12/21 11:36 11:40 11:45 Temperature 37.3 C 36.7 C 37 C Heart Rate 78 85 87 Heart Rate [ Activity] Heart Rate [ Brachial] Heart Rate [ Sitting] Heart Rate [ Supine] Respiratory 13 15 14 Rate Blood Pressure 109/57 L 110/63 107/59 L Blood Pressure [Activity] Blood Pressure [Right Brachial artery] Blood Pressure [Sitting] Blood Pressure [Supine] O2 Saturation 98 96 96 07/12/21 07/12/21 07/12/21 11:50 11:55 12:00 Temperature 37 C 37 C 37 C Heart Rate 83 81 83 Heart Rate [ Activity] Heart Rate [ Brachial] Heart Rate [ Sitting] Heart Rate [ Supine] Respiratory 17 18 15 Rate Blood Pressure 109/62 118/65 111/66 Blood Pressure [Activity] Blood Pressure [Right Brachial artery] Blood Pressure [Sitting] Blood Pressure [Supine] O2 Saturation 96 95 96 07/12/21 07/12/21 07/12/21 12:05 12:10 12:21 Temperature 36.9 C 36.9 C 36.4 C L Heart Rate 85 85 82 Heart Rate [ Activity] Heart Rate [ Brachial] Heart Rate [ Sitting] Heart Rate [ Supine] Respiratory 15 16 17 Rate Blood Pressure 121/64 120/64 118/65 Blood Pressure [Activity] Blood Pressure [Right Brachial artery] Blood Pressure [Sitting] Blood Pressure [Supine] O2 Saturation 96 96 93 07/12/21 07/12/21 07/12/21 12:36 12:51 13:06 Temperature 36.4 C L 36.2 C L 36.4 C L Heart Rate 89 83 88 Heart Rate [ Activity] Heart Rate [ Brachial] Heart Rate [ Sitting] Heart Rate [ Supine] Respiratory 17 16 16 Rate Blood Pressure 108/65 114/74 111/61 Blood Pressure [Activity] Blood Pressure [Right Brachial artery] Blood Pressure [Sitting] Blood Pressure [Supine] O2 Saturation 92 93 92 07/12/21 07/12/21 07/12/21 13:36 13:47 13:49 Temperature 37.1 C 37.1 C 36.5 C Heart Rate 70 Heart Rate [ Activity] Heart Rate [ 87 85 Brachial] Heart Rate [ Sitting] Heart Rate [ Supine] Respiratory 16 16 16 Rate Blood Pressure 104/53 L Blood Pressure [Activity] Blood Pressure 104/53 L 112/57 L [Right Brachial artery] Blood Pressure [Sitting] Blood Pressure [Supine] O2 Saturation 91 L 92 92 07/12/21 07/12/21 07/12/21 14:00 14:06 15:05 Temperature 36.6 C 36.5 C Heart Rate 100 97 Heart Rate [ 98 Activity] Heart Rate [ Brachial] Heart Rate [ 108 H Sitting] Heart Rate [ 87 Supine] Respiratory 18 16 Rate Blood Pressure 113/69 114/67 Blood Pressure 113/69 [Activity] Blood Pressure [Right Brachial artery] Blood Pressure 122/83 H [Sitting] Blood Pressure 112/57 L [Supine] O2 Saturation 94 93 07/12/21 07/12/21 07/12/21 15:44 15:45 18:22 Temperature 36.5 C 36.5 C 36.5 C Heart Rate 94 95 Heart Rate [ Activity] Heart Rate [ 94 Brachial] Heart Rate [ Sitting] Heart Rate [ Supine] Respiratory 16 16 16 Rate Blood Pressure 108/65 98/59 L Blood Pressure [Activity] Blood Pressure 108/65 [Right Brachial artery] Blood Pressure [Sitting] Blood Pressure [Supine] O2 Saturation 93 93 91 L 07/12/21 07/12/21 07/13/21 20:00 23:28 05:29 Temperature 36.8 C 36.8 C 36.6 C Heart Rate 94 98 89 Heart Rate [ Activity] Heart Rate [ Brachial] Heart Rate [ Sitting] Heart Rate [ Supine] Respiratory 19 16 17 Rate Blood Pressure 109/68 112/73 110/52 L Blood Pressure [Activity] Blood Pressure [Right Brachial artery] Blood Pressure [Sitting] Blood Pressure [Supine] O2 Saturation 93 93 93 Oxygen O2 Source [With Activity] Nasal cannula O2 Source Room air I&O (Last 24 Hrs): Intake and Output Totals x24h 07/11/21 07/12/21 07/13/21 23:59 23:59 23:59 Intake Total 1850 590 Output Total 2225 1000 Balance -375 -410 General: Alert, Oriented x3, Mild distress HEENT: PERRLA, EOMI Neck: No JVD Neuro: Alert, Oriented Times 3 Cardiovascular: Regular rate, Normal S1, Normal S2, Other (systolic murmur) Respiratory: Chest non-tender, No respiratory distress, Breath sounds nml Abdomen: Normal bowel sounds, Soft Extremities: No clubbing, No edema, No tenderness/swelling Skin: No rashes, No significant lesion - Results Results: Laboratory Results WBC 20.3 x10^3/uL (4.8-10.8) H 07/13/21 05:07 RBC 3.72 10^6/uL (4.20-5.40) L 07/13/21 05:07 Hgb 11.6 g/dL (12.0-16.0) L 07/13/21 05:07 Hct 35.0 % (37.0-47.0) L 07/13/21 05:07 MCV 94.1 fL (81.0-99.0) 07/13/21 05:07 MCH 31.2 pg (27.0-31.0) H 07/13/21 05:07 MCHC 33.1 g/dL (32.0-36.0) 07/13/21 05:07 RDW 13.5 % (12.0-15.0) 07/13/21 05:07 Plt Count 205 10^3/uL (130-450) 07/13/21 05:07 MPV 10.5 fL (7.9-10.8) 07/13/21 05:07 Neut # (Auto) Not Reportable 07/13/21 05:07 Lymph # (Auto) Not Reportable 07/13/21 05:07 Mcminn # (Auto) Not Reportable 07/13/21 05:07 Eos # (Auto) Not Reportable 07/13/21 05:07 Baso # (Auto) Not Reportable 07/13/21 05:07 Absolute Nucleated RBC Not Reportable 07/13/21 05:07 Total Counted 100 07/13/21 05:07 Band Neuts % (Manual) 14 % (0-10) H 07/13/21 05:07 Abnorm Lymph % (Manual) 0 % 07/13/21 05:07 Nucleated RBC % Not Reportable 07/13/21 05:07 Neutrophils # (Manual) 18.1 10^3/uL (1.5-6.6) H 07/13/21 05:07 Lymphocytes # (Manual) 1.0 10^3/uL (1.5-3.5) L 07/13/21 05:07 Monocytes # (Manual) 1.2 10^3/uL (0.0-1.0) H 07/13/21 05:07 Eosinophils # (Manual) 0.0 10^3/uL (0-0.7) 07/13/21 05:07 Basophils # (Manual) 0.0 10^3/uL (0-0.1) 07/13/21 05:07 Differential Comment MANUAL DIFFERENTIAL 07/13/21 05:07 Platelet Estimate NORMAL (130-450,000) (NORMAL) 07/13/21 05:07 RBC Morph Micro Appear NORMAL APPEARANCE (NORMAL) 07/13/21 05:07 Sodium 139 mmol/L (135-145) 07/13/21 05:07 Potassium 5.2 mmol/L (3.5-5.0) H 07/13/21 05:07 Chloride 111 mmol/L (101-111) 07/13/21 05:07 Carbon Dioxide 21 mmol/L (21-32) 07/13/21 05:07 Anion Gap 7.0 (6-13) 07/13/21 05:07 BUN 28 mg/dL (6-20) H 07/13/21 05:07 Creatinine 1.2 mg/dL (0.4-1.0) H 07/13/21 05:07 Estimated GFR (MDRD) 44 (>89) L 07/13/21 05:07 Glucose 139 mg/dL (70-100) H 07/13/21 05:07 Calcium 8.0 mg/dL (8.5-10.3) L 07/13/21 05:07 - Procedures Procedures: Procedures COLONOSCOPY (11/10/13) REPLACEMENT OF LEFT LENS WITH SYNTH SUB, PERC APPROACH (08/30/16) REPLACEMENT OF R SHOULDER JT WITH SYNTH SUB, OPEN APPROACH (12/31/18) REPLACEMENT OF RIGHT LENS WITH SYNTH SUB, PERC APPROACH (07/19/16) ABX Reporting Has patient been on IV antibiotics over the past 48 hours?: Yes
--- NOTE | 2021-07-13 07:56 | Discharge Plan ---
Discharge Plan Problem Reviewed?: Yes Disposition: Home, Self Care Diet: Regular Activity Restrictions: No weightbearing left edie Driving Restrictions: Yes (Do not operate a motor vehicle) Assistance Devices: Sling Weight Bearing: No Weight (No active shoulder motion. Do not push pull or lift with left shoulder or arm. Avoid lying on operative side. Use sling at all times except when bathing dressing or icing or performing exercises.No shoulder rotation past 20 degrees) Plan of Treatment: You had a left total shoulder arthroplasty or replacement. Avoid active use of your left arm. You will get physical and occupational therapy and instructed on the gentle range of motion exercises you can prevent needs initial few weeks. Additional Instructions or Follow Up instructions: Take your scheduled tramadol 50 mg along with scheduled Tylenol every day regardless of pain. Refer to your medication chart given during your [employer] education class. Take 5 mg of oxycodone every 4-6 hours as needed for breakthrough pain, it is recommended you take an oxycodone approximately an hour before you go to bed these first initial nights to promote sleep. Take 81 mg of aspirin twice a day for 6 weeks for blood clot prevention. No Smoking: If you smoke, Please STOP! Call for help. Follow-up with: Kimberly Noguera DO [Primary Care Provider] -
--- NOTE | 2021-07-13 08:03 | PROVIDER PROGRESS NOTE ---
Subjective - General Procedure Date: 07/12/21 Post Op Days: 1 Procedure Performed: Left TSA - Review of Systems Wound/Incisions: positive: Dressing dry and intact General: negative: Fever, Chills Gastrointestinal: negative: Nausea, Vomiting Musculoskeletal: positive: Shoulder pain (Patient is a 76-year-old female who is postop day 1 a left TSA performed by Dr Alvaro Tavarez at [facility] on 07/12/2021. Patient has a history of aortic stenosis urinary incontinence hypertension GERD and hyperlipidemia.), Joint swelling Objective - Patient Data Reviewed Vital Signs: Yes Vital Signs: Vital Signs x48h Temp Pulse Resp BP Pulse Ox 07/13/21 07:54 37 C 73 16 110/62 93 07/13/21 05:29 36.6 C 89 17 110/52 L 93 Weight: Weight 07/11/21 07/12/21 07/13/21 23:59 23:59 23:59 Weight (kg) 102.9 kg Intake & Output: Intake and Output Totals x24h 07/11/21 07/12/21 07/13/21 23:59 23:59 23:59 Intake Total 1850 590 Output Total 2225 1000 Balance -375 -410 - Lab Results Lab Results: 07/13/21 05:07 07/13/21 05:07 Other Lab Results: Lab Results x24hrs 07/13/21 07/13/21 07/12/21 Range/Units 05:07 05:07 17:35 WBC 20.3 H (4.8-10.8) x10^3/uL RBC 3.72 L (4.20-5.40) 10^6/uL Hgb 11.6 L (12.0-16.0) g/dL Hct 35.0 L (37.0-47.0) % MCV 94.1 (81.0-99.0) fL MCH 31.2 H (27.0-31.0) pg MCHC 33.1 (32.0-36.0) g/dL RDW 13.5 (12.0-15.0) % Plt Count 205 (130-450) 10^3/uL MPV 10.5 (7.9-10.8) fL Neut # (Auto) Not Reportable (1.5-6.6) 10^3/uL Lymph # (Auto) Not Reportable (1.5-3.5) 10^3/uL [place] # (Auto) Not Reportable (0.0-1.0) 10^3/uL Eos # (Auto) Not Reportable (0.0-0.7) 10^3/uL Baso # (Auto) Not Reportable (0.0-0.1) 10^3/uL Absolute Nucleated RBC Not Reportable x10^3/uL Total Counted 100 Band Neuts % (Manual) 14 H (0 - 10) % Abnorm Lymph % (Manual) 0 % Nucleated RBC % Not Reportable /100WBC Neutrophils # (Manual) 18.1 H (1.5-6.6) 10^3/uL Lymphocytes # (Manual) 1.0 L (1.5-3.5) 10^3/uL Monocytes # (Manual) 1.2 H (0.0-1.0) 10^3/uL Eosinophils # (Manual) 0.0 (0-0.7) 10^3/uL Basophils # (Manual) 0.0 (0-0.1) 10^3/uL Differential Comment MANUAL DIFFERENTIAL Platelet Estimate NORMAL (130-450,000) (NORMAL) RBC Morph Micro Appear NORMAL APPEARANCE (NORMAL) Sodium 139 138 (135-145) mmol/L Potassium 5.2 H 4.9 (3.5-5.0) mmol/L Chloride 111 107 (101-111) mmol/L Carbon Dioxide 21 20 L (21-32) mmol/L Anion Gap 7.0 11.0 (6-13) BUN 28 H 28 H (6-20) mg/dL Creatinine 1.2 H 1.4 H (0.4-1.0) mg/dL Estimated GFR (MDRD) 44 L 37 L (>89) Glucose 139 H 254 H (70-100) mg/dL Calcium 8.0 L 9.2 (8.5-10.3) mg/dL 07/12/21 Range/Units 17:35 WBC 17.1 H (4.8-10.8) x10^3/uL RBC 4.60 (4.20-5.40) 10^6/uL Hgb 13.8 (12.0-16.0) g/dL Hct 42.8 (37.0-47.0) % MCV 93.0 (81.0-99.0) fL MCH 30.0 (27.0-31.0) pg MCHC 32.2 (32.0-36.0) g/dL RDW 13.4 (12.0-15.0) % Plt Count 246 (130-450) 10^3/uL MPV 10.0 (7.9-10.8) fL Neut # (Auto) 15.3 H (1.5-6.6) 10^3/uL Lymph # (Auto) 1.2 L (1.5-3.5) 10^3/uL [place] # (Auto) 0.3 (0.0-1.0) 10^3/uL Eos # (Auto) 0.2 (0.0-0.7) 10^3/uL Baso # (Auto) 0.0 (0.0-0.1) 10^3/uL Absolute Nucleated RBC 0.00 x10^3/uL Total Counted Band Neuts % (Manual) (0 - 10) % Abnorm Lymph % (Manual) % Nucleated RBC % 0.0 /100WBC Neutrophils # (Manual) (1.5-6.6) 10^3/uL Lymphocytes # (Manual) (1.5-3.5) 10^3/uL Monocytes # (Manual) (0.0-1.0) 10^3/uL Eosinophils # (Manual) (0-0.7) 10^3/uL Basophils # (Manual) (0-0.1) 10^3/uL Differential Comment Platelet Estimate (NORMAL) RBC Morph Micro Appear (NORMAL) Sodium (135-145) mmol/L Potassium (3.5-5.0) mmol/L Chloride (101-111) mmol/L Carbon Dioxide (21-32) mmol/L Anion Gap (6-13) BUN (6-20) mg/dL Creatinine (0.4-1.0) mg/dL Estimated GFR (MDRD) (>89) Glucose (70-100) mg/dL Calcium (8.5-10.3) mg/dL - Imaging Results Radiology Imaging: positive: EMP read indepedently (I have independently visualized x-rays of the left shoulder that show postop surgical changes for total shoulder arthroplasty with no apparent hardware loosening good anatomical alignment.) - Current Medications Current Medications: Current Medications Generic Name Dose Route Start Last Admin Trade Name Freq PRN Reason Stop Dose Admin Acetaminophen 1,000 mg 07/12/21 12:00 07/13/21 05:29 Acetaminophen 500 Mg Tablet PO 1,000 mg Q6HR TIARRA Administration Alcohol 1 amp 07/12/21 09:00 07/12/21 21:01 Ethyl Alcohol 62% Swab Ampule AYSHA 1 amp BID TIARRA Administration Aspirin 81 mg 07/12/21 09:00 07/12/21 21:00 Aspirin Ec 81 Mg Tablet PO 81 mg BID TIARRA Administration Celecoxib 200 mg 07/12/21 09:00 07/12/21 21:01 Celecoxib 100 Mg Capsule PO 200 mg BID TIARRA Administration Oxybutynin Chloride 10 mg 07/12/21 21:00 07/12/21 21:01 Oxybutynin 5mg Tablet PO 10 mg BID TIARRA Administration Oxycodone HCl 5 mg 07/12/21 07:17 07/13/21 05:29 Oxycodone 5 Mg Tablet PO 5 mg Q6HR PRN Administration PAIN Pantoprazole Sodium 40 mg 07/13/21 07:00 07/13/21 06:38 Pantoprazole 40 Mg Tablet PO 40 mg QDAC TIARRA Administration Phenol/Menthol 2 sprays 07/12/21 20:32 07/12/21 21:01 Phenol Throat [place] 177 Ml MM 2 sprays Q2HR PRN Administration Throat Pain Pravastatin Sodium 40 mg 07/12/21 21:00 07/12/21 21:01 Pravastatin 40 Mg Tablet PO 40 mg QPM TIARRA Administration Sodium Chloride 10 ml 07/12/21 09:00 07/12/21 23:26 Sodium Chloride Flush 0.9% 10 Ml Syringe IVP 10 ml 0100,0900,1700 TIARRA Administration Throat Lozenges 1 lozenge 07/12/21 12:22 07/12/21 23:26 Benzocaine/Menthol Lozenge MM 1 lozenge Q2HR PRN Administration Throat pain - Physical Exam Wound/Incisions: positive: Dressing dry and intact General Appearance: positive: No acute distress Respiratory: positive: No respiratory distress Skin: positive: Warm, Dry, Other (Small amount of ecchymosis) Neurologic/Psychiatric: positive: Oriented x3 ABX Reporting Has patient been on IV antibiotics over the past 48 hours?: Yes Impression/Plan - Problem List Problem List: Patient is a 76 yo female post op day 1 TSA. No s/s infection, pain well contr olled Patient has received PT OT. Will receive 1 or 2 more sessions of PT OT today time permitting. Patient is cleared for discharge from an orthopedic surgery standpoint. Patient has been instructed on nonweightbearing nonactive use of the left shoulder. She has a postop follow-up next week in the Ortho clinic. Patient states she has paratransit coming today 07/13/2021 at 12:30 PM for pickup it is our plan to get her out in time. Patient to use a sling less bathing see discharge plan for more detailed instructions.
[2021-07-13] MEDS: ASPIRIN EC 81 MG TABLET PO SCH (08:10)
[2021-07-13] MEDS: SODIUM CHLORIDE FLUSH 0.9% 10 ML SYRINGE IVP SCH (08:11)
[2021-07-13] MEDS: OXYBUTYNIN 5MG TABLET PO SCH (08:11)
[2021-07-13] MEDS: CELECOXIB 100 MG CAPSULE PO SCH (08:11)
[2021-07-13] MEDS: ethyl alcohoL 62% SWAB AMPULE NAS SCH (08:11)
[2021-07-13] MEDS ORDERED: LOSARTAN 50 MG TABLET PO SCH (09:00)
[2021-07-13] MEDS ORDERED: ASPIRIN EC 81 MG TABLET PO SCH (09:00)
[2021-07-13] MEDS ORDERED: amLODIPine 5 MG TABLET PO SCH (09:00)
[2021-07-13] MEDS ORDERED: FAMOTIDINE 20 MG TABLET PO SCH (09:00)
[2021-07-13] MEDS: PHENOL THROAT SPRAY 177 ML MM PRN (09:56)
[2021-07-13] MEDS ORDERED: KETOROLAC 30 MG/ML VIAL IVP PRN (10:55)
[2021-07-13 11:55] VITALS: BP 117/68
== END 2021-07-13 12:40 | disposition home or self-care (01) ==
LOC: SDS 05:54 → MS2 11:58 → SDS 07-13 12:40
PROVIDERS: ATTEND Orthopaedic Surgery
DX: M19.012 Primary osteoarthritis, left shoulder (principal); I35.0 Nonrheumatic aortic (valve) stenosis; I10 Essential (primary) hypertension; E78.5 Hyperlipidemia, unspecified; D72.829 Elevated white blood cell count, unspecified; E87.5 Hyperkalemia; Z79.899 Other long term (current) drug therapy; K21.9 Gastro-esophageal reflux disease without esophagitis; E66.9 Obesity, unspecified; Z68.37 Body mass index [BMI] 37.0-37.9, adult
CPT/HCPCS: 23472; 36415; 73020; 80048; 85025; 97110; 97162; 97165; A9270; J0690; J3370; J7120

== ENCOUNTER 2021-08-24 09:30 | Outpatient (CLI) | payer MEDICARE ==
--- NOTE | 2021-08-24 10:48 | XRAY Report ---
PROCEDURE: Shoulder 3 View LT INDICATIONS: TOTAL L SHOULDER ARTHROPLASTY TECHNIQUE: 4 views of the shoulder were acquired. COMPARISON: None. FINDINGS: Bones: Expected appearance of total left shoulder arthroplasty. No evidence of hardware failure or l oosening. No fractures or dislocations. No suspicious bony lesions. Visualized ribs appear intact. Soft tissues: No suspicious soft tissue calcifications. IMPRESSION: Expected appearance of total left shoulder arthroplasty. Reviewed by: Martínez Willis MD on 08/24/2021 10:46 AM [facility] Approved by: Martínez Willis MD on 08/24/2021 10:46 AM [facility] Station ID: [id number]
== END 2021-08-24 23:59 | disposition home or self-care (01) ==
LOC: DI.N 09:30
PROVIDERS: ATTEND Orthopaedic Surgery
DX: Z96.612 Presence of left artificial shoulder joint (principal)

== ENCOUNTER 2021-11-30 08:37 | Outpatient (CLI) | payer MEDICARE ==
--- NOTE | 2021-11-30 10:34 | CARDIAC PROCEDURE NOTE ---
Stress Test Report Service Date: 11/30/21 Service Time: 09:00 Ordering Provider: Kimberly Noguera Indication for Test: Assess chest discomfort in patient with known moderate aortic stenosis. Significant Medical History: Jessy presents for evaluation of 2 episodes of nocturnal chest discomfort occurring within the past month. On both occasions she was awakened with a sensation of chest pressure and increased work of breathing, both of which resolved upon standing in less than a minute. She has several musculoskeletal issues, and in addition, due to concern for Covid exposure, she notes a significant decrease in her activity level over the last couple of years. She may have had some decrease in her stamina over this period. She lives in an apartment on the second floor but takes the elevator upstairs. She denies any occurrence of exertional chest pressure or discomfort, as well as marked dyspnea with exertion. 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 Last echocardiogram in April,, showed indices suggesting she is nearing severe aortic stenosis (mean gradient 38 mmHg, V-max 3.95 m/s). She has a follow-up visit scheduled with Dr. Minor in the next month or so to review her overall cardiovascular issues. Cardiac Risk Factors: Positive for hypertension, hyperlipidemia and family history of coronary disease in both her father (CABG surgery at age 58) and sister (hx of complicated diabetes with NE). She herself has prediabetes. She smoked for a few years in her early 20s, but quit over 40 years ago. Type of Stress Test: Pharmacologic Stress Test with MPI Pharmacologic Agent: Lexiscan Procedure: -Pharmacologic Stress Test- After signing informed consent, the patient underwent rest SPECT imaging and then performed a walking Lexiscan pharmacologic stress test. After obtaining resting vital signs and EKG (resting), the patient walked for 2 minutes (without elevation) at 0.8 mph ("baseline") followed by injection of Lexiscan and high dose [id number] with an additional 2 minutes of walking ("peak" reassessment) followed by monitoring for an additional 4 minutes ("recovery"). The test was terminated due to completing the protocol. Resting HR: 80 Baseline HR: 104 Peak HR: 125 Normal HR response. Resting BP: 168/90 Baseline BP: 168/90 Peak BP: 191/79 Hypertensive at rest with physiologic BP response to walking and Lexiscan. Note that patient did take her losartan this AM. Rhythm during testing: Sinus rhythm throughout. Symptoms: Following Lexiscan injection she reported increased work of breathing, a sense of imbalance and increased work of walking; she denied experiencing any chest discomfort. All symptoms resolved within 4 minutes of test completion. EKG at rest showed normal sinus rhythm, normal in all aspects. EKG at peak stress showed no ischemia by EKG criteria. In Recovery heart rate and blood pressure decreased towards baseline levels (104 and 152/76 at 4:00). Nuclear imaging was performed at rest and with stress. The image interpretation will be reported separately. IReg MD, was present throughout this walking Lexiscan stress study and supervised it in its entirety. Summary: 1) Normal resting EKG. 2) Adequate stress was likely achieved. 3) Hypertensive at rest with normal BP response to pharmacologic agent/low intensity walking. 4) No ischemic changes by EKG criteria were seen at peak stress. 5) Analysis of gated nuclear images reveals normal left ventricular size and systolic function; SPECT analysis reveals normal perfusion of the left ventricle at rest and following treadmill stress, thus no evidence of prior infarct or inducible ischemia. See separate report for more detail. CONCLUSIONS: 1) Low risk walking Lexiscan stress myocardial perfusion imaging study. 2) Patient is advised to re-assess adequacy of blood pressure control, in advance of provider follow up visits.
[2021-11-30] MEDS ORDERED: AMINOPHYLLINE 500 MG/20 ML VIAL ONE (11:00)
[2021-11-30] MEDS ORDERED: REGADENOSON 0.4 MG/5 ML SYRINGE IVP ONE ×2 (11:01→12:33)
--- NOTE | 2021-11-30 16:54 | Nuclear Medicine Report ---
PROCEDURE: Rest and stress myocardial perfusion SPECT with gated imaging and ejection fraction INDICATIONS: CHEST PAIN RADIOPHARMACEUTICAL: 10.0 mCi Tc-99m Myoview IV at rest and 33.5 mCi Tc-99m Myoview IV at peak exerc ise. Buj-npi-oviodymj was performed. TECHNIQUE: Radiopharmaceutical was injected at peak stress test, and also at rest. SPECT images wer e obtained. SPECT myocardial perfusion images were displayed in short axis, horizontal long axis, an d vertical long axis views. Gated images were reviewed using Auto[employer] software. COMPARISON: None available. FINDINGS: Raw data: There is good myocardial labeling by radiotracer. No significant motion artifacts. Lung- to-heart ratio is 0.27 (normal is less than 0.46 for tetrafosmin tracer). No definitive EKG changes of ischemia. Left ventricle function: Gated images demonstrate normal left ventricle wall thickening. No segment al wall motion abnormality. No transient ischemic dilation; TID is 0.85 (normal less than 1.30). Th e left ventricle resting end-diastolic volume is 65 mL. Left ventricle stress ejection fraction is 8 3%; normal values are above 45%. Myocardial perfusion: There is normal distribution of activity in the left and right ventricular camelia cardium. No fixed or reversible perfusion defects. IMPRESSION: No stress perfusion defects to indicate ischemia. Ejection fraction 83%. No definitive EKG changes of ischemia. PQRS ATTESTATIONS: Measure 322 - Is this imaging test primarily performed on a low-risk surgery patient for preoperative evaluation within 30 days preceding their low-risk non-cardiac surgery? Low-risk surgery is defined as cardiac or myocardial infarction less than 1%, including (but not limited to) endoscopic pr ocedures, superficial procedures, cataract surgery, and excisional breast surgery: Answer: No Measure 323 - Is this imaging test performed primarily for the monitoring of an asymptomatic patient who had percutaneous coronary intervention on the visit date or within 2 years of the visit date? An swer: No Measure 324 - Is this imaging test performed primarily for the initial detection and risk assessment on an asymptomatic, low coronary heart disease patient? Low CHD risk definition = clinicians should consider the maximum number of available patient factors used to estimate risk based on [place] (A TP III criteria), typically age, gender, diabetes, smoking status, and use of blood pressure medicati on, and integrate age appropriate estimates for missing elements, such as LDL or standard blood press ure. Answer: No Reviewed by: Maria Elena Rojas MD on 11/30/2021 4:53 PM PDT Approved by: Maria Elena Rojas MD on 11/30/2021 4:53 PM PDT Station ID: [id number]
== END 2021-11-30 08:38 | disposition home or self-care (01) ==
LOC: DI 08:37
PROVIDERS: ATTEND Family Medicine
DX: R07.9 Chest pain, unspecified (principal); I10 Essential (primary) hypertension; E78.5 Hyperlipidemia, unspecified; Z82.49 Family history of ischemic heart disease and other diseases of the circulatory system; R73.03 Prediabetes; Z87.891 Personal history of nicotine dependence
CPT/HCPCS: 78452; 93016; 93017; 93018; A9500; J2785

== ENCOUNTER 2022-05-24 08:42 | Outpatient (CLI) | payer MEDICARE | END 2022-05-24 08:43 | disposition home or self-care (01) | LOC: DI 08:42 | PROVIDERS: ATTEND Internal Medicine | DX: I35.0 Nonrheumatic aortic (valve) stenosis (principal); I51.7 Cardiomegaly | CPT/HCPCS: 93306 ==

== ENCOUNTER 2022-06-27 13:49 | Outpatient (CLI) | payer MEDICARE ==
--- NOTE | 2022-06-28 09:49 | Mammography Report ---
BILATERAL DIGITAL SCREENING MAMMOGRAM 3D/2D: 06/27/2022 CLINICAL: Routine screening. Comparison is made to exams dated: 09/29/2020 mammogram, 07/28/2020 mammogram, 07/31/2019 mammogram, 06/19/2018 mammogram, and 03/06/2018 mammogram - [facility]. There are scattered areas of fibroglandular density in both breasts (category b / 25%-50% glandular t issue). No significant masses, calcifications, or other findings are seen in either breast. There has been no significant interval change. IMPRESSION: NEGATIVE There is no mammographic evidence of malignancy. A 1 year screening mammogram is recommended. Based on the Tyrer Cuzick model (a risk assessment model) the patients lifetime risk is 3.9% and her 10 year risk is 3.9%. According to the ACR, ACS, and NCCN guidelines, an annual breast MRI exam carito g with mammogram is recommended if the patients lifetime risk is 20% or greater. This exam was interpreted at Station ID: [id number]. NOTE: For mammograms, a report in lay terms will be sent to the patient. Approximately 15% of breast malignancies will not be visualized mammographically. In the management of a palpable breast mass, a negative mammogram must not discourage biopsy of a clinically suspicious lesion. Electronically Signed By: Roman [email or web address]:06/27/2022 17:43:58 ACR BI-RADS Category 1: Negative 3341F PARENCHYMAL PATTERN: (A) - The breast(s) demonstrate(s) scattered fibroglandular densities. BI-RADS CATEGORY: (1) - 1 RECOMMENDATION: (ANNUAL) - Recommend routine annual screening mammography. [id number] 1 year screening LATERALITY: (B)
== END 2022-06-27 13:50 | disposition home or self-care (01) ==
LOC: DI 13:49
PROVIDERS: ATTEND Internal Medicine
DX: Z12.31 Encounter for screening mammogram for malignant neoplasm of breast (principal)

== ENCOUNTER 2022-07-26 14:37 | Outpatient (CLI) | payer MEDICARE ==
--- NOTE | 2022-07-26 16:30 | XRAY Report ---
PROCEDURE: Shoulder 3 View LT INDICATIONS: LEFT TOTAL SHOULDER TECHNIQUE: 4 views of the shoulder were acquired. COMPARISON: Left shoulder radiographs 08/24/2021 FINDINGS: Bones: Prior left shoulder arthroplasty. No acute fractures or dislocations. No suspicious bony les ions. Visualized ribs appear intact. Soft tissues: No suspicious soft tissue calcifications. IMPRESSION: Postsurgical changes from left shoulder arthroplasty. No definite acute findings. Reviewed by: Gume Rain MD on 07/26/2022 4:28 PM PST Approved by: Gume Rain MD on 07/26/2022 4:28 PM PST Station ID: [id number]
== END 2022-07-26 14:38 | disposition home or self-care (01) ==
LOC: DI.WOS 14:37
PROVIDERS: ATTEND Physician Assistant Surgical
DX: Z09 Encounter for follow-up examination after completed treatment for conditions other than malignant neoplasm (principal); Z96.612 Presence of left artificial shoulder joint

== ENCOUNTER 2022-10-17 08:35 | Outpatient (CLI) | payer MEDICARE ==
[2022-10-17 12:01] LABS: CREATININE,URINE 277.3 mg/dL; MICROALBUM/CREATININE RATIO,UR 7.2 ug/mg (<30.0)
[2022-10-17 12:02] LABS: BASOPHILS # (AUTO) 0.1 10^3/uL (0.0-0.1); BASOPHILS % (AUTO) 0.5 %; EOSINOPHILS # (AUTO) 0.3 10^3/uL (0.0-0.7); EOSINOPHILS % (AUTO) 3.2 %; HCT - HEMATOCRIT 46.4 % (37.0-47.0); HGB - HEMOGLOBIN 14.6 g/dL (12.0-16.0); LYMPHOCYTES # (AUTO) 3.6 10^3/uL (1.5-3.5); LYMPHOCYTES % (AUTO) 35.1 %; MEAN CORPUSCULAR HEMOGLOBIN 28.2 pg (27.0-31.0); MEAN CORPUSCULAR HGB CONC 31.5 g/dL (32.0-36.0); MEAN CORPUSCULAR VOLUME 89.6 fL (81.0-99.0); MEAN PLATELET VOLUME 11.4 fL (7.9-10.8); MONOCYTES # (AUTO) 0.6 10^3/uL (0.0-1.0); MONOCYTES % (AUTO) 6.3 %; NEUTROPHILS # (AUTO) 5.6 10^3/uL (1.5-6.6); NEUTROPHILS % (AUTO) 54.7 %; PLT - PLATELET COUNT 263 10^3/uL (130-450); RED BLOOD COUNT 5.18 10^6/uL (4.20-5.40); RED CELL DISTRIBUTION WIDTH 14.4 % (12.0-15.0); WHITE BLOOD COUNT 10.2 x10^3/uL (4.8-10.8)
[2022-10-17 12:12] LABS: INR 0.9 (0.8-1.2); PT - PROTHROMBIN TIME 10.6 secs (9.9-12.6)
[2022-10-17 12:21] LABS: ESTIMATED AVERAGE GLUCOSE 134 mg/dL (70-100); HEMOGLOBIN A1c% 6.3 % (4.27-6.07)
[2022-10-17 12:26] LABS: ALBUMIN 3.9 g/dL (3.2-5.5); ALBUMIN/GLOBULIN RATIO 1.1 (1.0-2.2); ALKALINE PHOSPHATASE 94 IU/L (42-121); ALT ALANINE AMINOTRANSFERASE 22 IU/L (10-60); AST ASPARTATE AMINOTRANSFERASE 21 IU/L (10-42); BILIRUBIN,TOTAL 0.5 mg/dL (0.2-1.0); BUN - BLOOD UREA NITROGEN 21 mg/dL (6-20); CALCIUM 9.3 mg/dL (8.5-10.3); CARBON DIOXIDE - CO2 21 mmol/L (21-32); CHLORIDE 106 mmol/L (101-111); CHOL/HDL RATIO 2.8 (<4.4); CHOLESTEROL 169 mg/dL; CREATININE 1.1 mg/dL (0.4-1.0); GFR - MDRD 48 (>89); GLUCOSE 114 mg/dL (70-100); HDL CHOLESTEROL 60 mg/dL; LDL CHOLESTEROL,CALCULATED 80 mg/dL; LDL/HDL RATIO 1.3 (<4.4); SODIUM 138 mmol/L (135-145); TOTAL PROTEIN 7.4 g/dL (6.7-8.2); TRIGLYCERIDES 145 mg/dL; VLDL CHOLESTEROL 29 mg/dL
== END 2022-10-17 08:36 | disposition home or self-care (01) ==
LOC: LAB.N 08:35
PROVIDERS: ATTEND Internal Medicine
DX: I10 Essential (primary) hypertension (principal); E78.5 Hyperlipidemia, unspecified; R73.01 Impaired fasting glucose
CPT/HCPCS: 36415; 80053; 80061; 82043; 82570; 83036; 83721; 84443; 85025; 85610

== ENCOUNTER 2022-12-07 09:02 | Outpatient (CLI) | payer MEDICARE ==
[2022-12-07 12:02] LABS: BASOPHILS % (AUTO) 0.5 %; EOSINOPHILS # (AUTO) 0.4 10^3/uL (0.0-0.7); EOSINOPHILS % (AUTO) 4.2 %; HCT - HEMATOCRIT 44.6 % (37.0-47.0); HGB - HEMOGLOBIN 14.1 g/dL (12.0-16.0); LYMPHOCYTES # (AUTO) 2.5 10^3/uL (1.5-3.5); LYMPHOCYTES % (AUTO) 30.7 %; MEAN CORPUSCULAR HEMOGLOBIN 28.5 pg (27.0-31.0); MEAN CORPUSCULAR HGB CONC 31.6 g/dL (32.0-36.0); MEAN CORPUSCULAR VOLUME 90.1 fL (81.0-99.0); MEAN PLATELET VOLUME 10.7 fL (7.9-10.8); MONOCYTES # (AUTO) 0.6 10^3/uL (0.0-1.0); MONOCYTES % (AUTO) 7.6 %; NEUTROPHILS # (AUTO) 4.7 10^3/uL (1.5-6.6); NEUTROPHILS % (AUTO) 56.9 %; PLT - PLATELET COUNT 239 10^3/uL (130-450); RED BLOOD COUNT 4.95 10^6/uL (4.20-5.40); RED CELL DISTRIBUTION WIDTH 14.6 % (12.0-15.0); WHITE BLOOD COUNT 8.3 x10^3/uL (4.8-10.8)
[2022-12-07 12:17] LABS: CALCIUM 9.1 mg/dL (8.5-10.3); CREATININE 1.2 mg/dL (0.4-1.0); POTASSIUM 3.9 mmol/L (3.5-5.0)
== END 2022-12-07 09:03 | disposition home or self-care (01) ==
LOC: LAB.N 09:02
PROVIDERS: ATTEND Specialist
DX: I35.0 Nonrheumatic aortic (valve) stenosis (principal)
CPT/HCPCS: 36415; 80048; 85025; 85730

== ENCOUNTER 2023-03-11 08:55 | Outpatient (CLI) | payer MEDICARE ==
[2023-03-11 12:06] LABS: BASOPHILS % (AUTO) 0.4 %; EOSINOPHILS # (AUTO) 0.3 10^3/uL (0.0-0.7); EOSINOPHILS % (AUTO) 2.4 %; HCT - HEMATOCRIT 43.4 % (37.0-47.0); HGB - HEMOGLOBIN 13.6 g/dL (12.0-16.0); LYMPHOCYTES # (AUTO) 2.4 10^3/uL (1.5-3.5); LYMPHOCYTES % (AUTO) 22.6 %; MEAN CORPUSCULAR HEMOGLOBIN 27.7 pg (27.0-31.0); MEAN CORPUSCULAR HGB CONC 31.3 g/dL (32.0-36.0); MEAN CORPUSCULAR VOLUME 88.4 fL (81.0-99.0); MEAN PLATELET VOLUME 11.2 fL (7.9-10.8); MONOCYTES # (AUTO) 0.6 10^3/uL (0.0-1.0); MONOCYTES % (AUTO) 5.7 %; NEUTROPHILS # (AUTO) 7.2 10^3/uL (1.5-6.6); NEUTROPHILS % (AUTO) 68.6 %; PLT - PLATELET COUNT 197 10^3/uL (130-450); RED BLOOD COUNT 4.91 10^6/uL (4.20-5.40); RED CELL DISTRIBUTION WIDTH 14.2 % (12.0-15.0); WHITE BLOOD COUNT 10.4 x10^3/uL (4.8-10.8)
[2023-03-11 12:31] LABS: ALBUMIN 3.9 g/dL (3.2-5.5); ALBUMIN/GLOBULIN RATIO 1.3 (1.0-2.2); ALKALINE PHOSPHATASE 90 IU/L (42-121); ALT ALANINE AMINOTRANSFERASE 21 IU/L (10-60); AST ASPARTATE AMINOTRANSFERASE 21 IU/L (10-42); BILIRUBIN,TOTAL 0.4 mg/dL (0.2-1.0); BUN - BLOOD UREA NITROGEN 23 mg/dL (6-20); CALCIUM 9.3 mg/dL (8.5-10.3); CARBON DIOXIDE - CO2 25 mmol/L (21-32); CHLORIDE 113 mmol/L (101-111); CHOL/HDL RATIO 2.4 (<4.4); CHOLESTEROL 154 mg/dL; CREATININE 1.2 mg/dL (0.4-1.0); GFR - MDRD 44 (>89); GLUCOSE 115 mg/dL (70-100); HDL CHOLESTEROL 63 mg/dL; LDL CHOLESTEROL,CALCULATED 66 mg/dL; POTASSIUM 4.6 mmol/L (3.5-5.0); SODIUM 143 mmol/L (135-145); TRIGLYCERIDES 127 mg/dL; VLDL CHOLESTEROL 25 mg/dL
[2023-03-11 13:01] LABS: ESTIMATED AVERAGE GLUCOSE 128 mg/dL (70-100); HEMOGLOBIN A1c% 6.1 % (4.27-6.07)
== END 2023-03-11 08:56 | disposition home or self-care (01) ==
LOC: LAB.N 08:55
PROVIDERS: ATTEND Internal Medicine
DX: E78.5 Hyperlipidemia, unspecified (principal); R73.03 Prediabetes; I10 Essential (primary) hypertension
CPT/HCPCS: 36415; 80053; 80061; 83036; 83721; 85025

== ENCOUNTER 2023-06-21 08:17 | Outpatient (CLI) | payer MEDICARE ==
[2023-06-21 11:46] LABS: BASOPHILS % (AUTO) 0.4 %; EOSINOPHILS # (AUTO) 0.3 10^3/uL (0.0-0.7); EOSINOPHILS % (AUTO) 3.7 %; HCT - HEMATOCRIT 44.7 % (37.0-47.0); HGB - HEMOGLOBIN 13.6 g/dL (12.0-16.0); LYMPHOCYTES # (AUTO) 2.6 10^3/uL (1.5-3.5); LYMPHOCYTES % (AUTO) 33.8 %; MEAN CORPUSCULAR HEMOGLOBIN 26.9 pg (27.0-31.0); MEAN CORPUSCULAR HGB CONC 30.4 g/dL (32.0-36.0); MEAN CORPUSCULAR VOLUME 88.5 fL (81.0-99.0); MONOCYTES # (AUTO) 0.6 10^3/uL (0.0-1.0); MONOCYTES % (AUTO) 7.7 %; NEUTROPHILS # (AUTO) 4.1 10^3/uL (1.5-6.6); NEUTROPHILS % (AUTO) 54.3 %; PLT - PLATELET COUNT 190 10^3/uL (130-450); RED BLOOD COUNT 5.05 10^6/uL (4.20-5.40); RED CELL DISTRIBUTION WIDTH 15.2 % (12.0-15.0); WHITE BLOOD COUNT 7.6 x10^3/uL (4.8-10.8)
[2023-06-21 12:36] LABS: ALBUMIN 4.2 g/dL (3.2-5.5); ALBUMIN/GLOBULIN RATIO 1.7 (1.0-2.2); ALKALINE PHOSPHATASE 110 IU/L (42-121); ALT ALANINE AMINOTRANSFERASE 18 IU/L (10-60); AST ASPARTATE AMINOTRANSFERASE 22 IU/L (10-42); BILIRUBIN,TOTAL 0.5 mg/dL (0.2-1.0); BUN - BLOOD UREA NITROGEN 22 mg/dL (6-20); CALCIUM 9.4 mg/dL (8.5-10.3); CARBON DIOXIDE - CO2 26 mmol/L (21-32); CHLORIDE 110 mmol/L (101-111); CHOL/HDL RATIO 2.9 (<4.4); CHOLESTEROL 171 mg/dL; CREATININE 1.2 mg/dL (0.6-1.3); GFR - MDRD 44 (>89); GLUCOSE 99 mg/dL (74-104); HDL CHOLESTEROL 59 mg/dL; LDL CHOLESTEROL,CALCULATED 84 mg/dL; LDL/HDL RATIO 1.4 (<4.4); POTASSIUM 4.5 mmol/L (3.5-4.5); SODIUM 142 mmol/L (135-145); TOTAL PROTEIN 6.7 g/dL (6.4-8.9); TRIGLYCERIDES 139 mg/dL (48-352); VLDL CHOLESTEROL 28 mg/dL
[2023-06-21 12:41] LABS: ESTIMATED AVERAGE GLUCOSE 134 mg/dL (70-100); HEMOGLOBIN A1c% 6.3 % (4.27-6.07)
== END 2023-06-21 08:18 | disposition home or self-care (01) ==
LOC: LAB.N 08:17
PROVIDERS: ATTEND Internal Medicine
DX: I10 Essential (primary) hypertension (principal); E78.5 Hyperlipidemia, unspecified; R73.03 Prediabetes
CPT/HCPCS: 36415; 80053; 80061; 83036; 83721; 85025

== ENCOUNTER 2023-07-05 13:23 | Outpatient (CLI) | payer MEDICARE ==
--- NOTE | 2023-07-08 11:27 | Mammography Report ---
BILATERAL DIGITAL SCREENING MAMMOGRAM 3D/2D: 07/05/2023 CLINICAL: Routine screening. Comparison is made to exams dated: 06/27/2022 mammogram, 09/29/2020 mammogram, 07/28/2020 mammogram, 07/31/2019 mammogram, 06/19/2018 mammogram, and 03/06/2018 mammogram - [facility]. There are scattered areas of fibroglandular density in both breasts (category b / 25%-50% glandular t issue). No significant masses, calcifications, or other findings are seen in either breast. IMPRESSION: NEGATIVE There is no mammographic evidence of malignancy. A 1 year screening mammogram is recommended. Based on the Tyrer Cuzick model (a risk assessment model) the patients lifetime risk is 3.6% and her 10 year risk is 0.0%. According to the ACR, ACS, and NCCN guidelines, an annual breast MRI exam carito g with mammogram is recommended if the patients lifetime risk is 20% or greater. This exam was interpreted at Station ID: [id number]. NOTE: For mammograms, a report in lay terms will be sent to the patient. Approximately 15% of breast malignancies will not be visualized mammographically. In the management of a palpable breast mass, a negative mammogram must not discourage biopsy of a clinically suspicious lesion. Electronically Signed By: Franci [email or web address]:07/07/2023 17:14:47 letter sent: No_Letter ACR BI-RADS Category 1: Negative 3341F PARENCHYMAL PATTERN: (A) - The breast(s) demonstrate(s) scattered fibroglandular densities. BI-RADS CATEGORY: (1) - 1 Mammogram [id number] 1 year screening LATERALITY: (B)
== END 2023-07-05 13:24 | disposition home or self-care (01) ==
LOC: DI 13:23
DX: Z12.31 Encounter for screening mammogram for malignant neoplasm of breast (principal); R92.323 Mammographic fibroglandular density, bilateral breasts

== ENCOUNTER 2023-10-02 09:20 | Outpatient (CLI) | payer MEDICARE ==
[2023-10-02 12:33] LABS: HCT - HEMATOCRIT 42.7 % (37.0-47.0); HGB - HEMOGLOBIN 13.6 g/dL (12.0-16.0); MEAN CORPUSCULAR HEMOGLOBIN 27.7 pg (27.0-31.0); MEAN CORPUSCULAR HGB CONC 31.9 g/dL (32.0-36.0); MEAN PLATELET VOLUME 11.5 fL (7.9-10.8); RED BLOOD COUNT 4.91 10^6/uL (4.20-5.40); RED CELL DISTRIBUTION WIDTH 15.8 % (12.0-15.0); WHITE BLOOD COUNT 8.5 x10^3/uL (4.8-10.8)
[2023-10-02 12:42] LABS: ESTIMATED AVERAGE GLUCOSE 140 mg/dL (70-100); HEMOGLOBIN A1c% 6.5 % (4.27-6.07)
[2023-10-02 12:54] LABS: ALBUMIN 4.2 g/dL (3.2-5.5); ALBUMIN/GLOBULIN RATIO 1.6 (1.0-2.2); ALKALINE PHOSPHATASE 102 IU/L (42-121); ALT ALANINE AMINOTRANSFERASE 19 IU/L (10-60); AST ASPARTATE AMINOTRANSFERASE 21 IU/L (10-42); BILIRUBIN,TOTAL 0.4 mg/dL (0.2-1.0); BUN - BLOOD UREA NITROGEN 26 mg/dL (6-20); CALCIUM 9.4 mg/dL (8.5-10.3); CARBON DIOXIDE - CO2 24 mmol/L (21-32); CHLORIDE 108 mmol/L (101-111); CHOL/HDL RATIO 2.9 (<4.4); CHOLESTEROL 168 mg/dL; CREATININE 1.3 mg/dL (0.6-1.3); GFR - MDRD 40 (>89); GLUCOSE 123 mg/dL (74-104); HDL CHOLESTEROL 57 mg/dL; LDL CHOLESTEROL,CALCULATED 85 mg/dL; LDL/HDL RATIO 1.5 (<4.4); POTASSIUM 4.4 mmol/L (3.5-4.5); SODIUM 141 mmol/L (135-145); TOTAL PROTEIN 6.9 g/dL (6.4-8.9); TRIGLYCERIDES 128 mg/dL (48-352); VLDL CHOLESTEROL 26 mg/dL
[2023-10-02 13:18] LABS: THYROID STIMULATING HORMONE 0.78 uIU/mL (0.34-5.60)
== END 2023-10-02 09:21 | disposition home or self-care (01) ==
LOC: LAB.N 09:20
PROVIDERS: ATTEND Family Medicine
DX: I10 Essential (primary) hypertension (principal); R73.03 Prediabetes; I35.0 Nonrheumatic aortic (valve) stenosis; E78.5 Hyperlipidemia, unspecified
CPT/HCPCS: 36415; 80053; 80061; 83036; 83721; 84443; 85027

== ENCOUNTER 2024-01-14 08:00 | Outpatient (CLI) | payer MEDICARE ==
[2024-01-14 18:27] LABS: H. PYLORIS ANTIGEN STL NEGATIVE (Negative)
== END 2024-01-14 23:59 | disposition home or self-care (01) ==
LOC: LAB.N 08:00
PROVIDERS: ATTEND Internal Medicine
DX: K52.9 Noninfective gastroenteritis and colitis, unspecified (principal)
CPT/HCPCS: 83993; 87045; 87046; 87338; 87427; 87493

== ENCOUNTER 2024-01-17 14:06 | Outpatient (CLI) | payer MEDICARE ==
--- NOTE | 2024-01-18 03:28 | XRAY Report ---
PROCEDURE: Facial Bones 3+V INDICATIONS: PERIORBITAL ECCHYMOSIS TECHNIQUE: 3 views of the facial bones were acquired. COMPARISON: None FINDINGS: Sinuses: Visualized sinuses demonstrate no air-fluid levels or mucosal thickening. Bones: No fractures. No suspicious bony lesions. Orbital rims and zygomatic arches appear intact. Soft tissues: No suspicious soft tissue densities. IMPRESSION: Unremarkable facial bone radiographs Reviewed by: Munir Soto MD on 01/18/2024 2:26 AM [email or web address] Approved by: Munir Soto MD on 01/18/2024 2:26 AM AKDT Station ID: [id number]
== END 2024-01-17 14:07 | disposition home or self-care (01) ==
LOC: DI 14:06
PROVIDERS: ATTEND Physician Assistant Medical
DX: H11.30 Conjunctival hemorrhage, unspecified eye (principal)

== ENCOUNTER 2024-02-04 07:56 | Outpatient (CLI) | payer MEDICARE ==
[2024-02-04 13:15] LABS: CALCIUM 9.6 mg/dL (8.5-10.3); CREATININE 1.3 mg/dL (0.6-1.3); POTASSIUM 4.4 mmol/L (3.5-4.5)
[2024-02-04 13:42] LABS: ESTIMATED AVERAGE GLUCOSE 134 mg/dL (70-100); HEMOGLOBIN A1c% 6.3 % (4.27-6.07)
== END 2024-02-04 07:57 | disposition home or self-care (01) ==
LOC: LAB.N 07:56
PROVIDERS: ATTEND Internal Medicine
DX: R73.03 Prediabetes (principal)
CPT/HCPCS: 36415; 80048; 83036

== ENCOUNTER 2024-02-20 07:15 | Day surgery (SDC) | payer MEDICARE ==
[2024-02-20] MEDS: LACTATED RINGERS 1,000 ML IV ONE (07:20)
[2024-02-20] MEDS ORDERED: LIDOCAINE-MPF 2% 5 ML VIAL ONE (07:53)
[2024-02-20] MEDS ORDERED: PROPOFOL 500 MG/50 ML 500 MG/50 ML VIAL ONE (07:53)
--- NOTE | 2024-02-20 08:27 | ANESTHESIA ---
Pre-Anesthesia VS, & Labs - Diagnosis Family hx colon cancer, change in bowel habits, and reflux - Procedure Colonoscopy and EGD Height: 5 ft 5 in Weight (kg): 91.6 kg Body Mass Index: 33.5 BMI Classification: Obese - NPO >8 hours - Is Patient ?: Not Applicable Home Medications and Allergies Meloxicam [Mobic] 7.5 mg PO BID 11/09/13 Oxybutynin Chloride [Oxybutynin Chloride ER] 10 mg PO BID 11/09/13 Aspirin [Aspir-Low] 81 mg PO DAILY 08/30/16 Multivitamin [Multiple Vitamins] 1 each PO DAILY 12/18/18 Amlodipine Besylate [Norvasc] 10 mg PO DAILY 07/06/21 Azelastine HCl 1 drops EACHEYE BID PRN 07/06/21 Calcium Carbonate/Vitamin D3 [Calcium 600-Vit D3 200 Tablet] 1 each PO BID 07/06 Famotidine [Pepcid] 20 mg PO DAILY 07/06/21 Fluticasone Propionate 1 spray NS BID 07/06/21 Levocetirizine Dihydrochloride 5 mg PO DAILY 07/06/21 Losartan Potassium [Cozaar] 100 mg PO DAILY 07/06/21 Omeprazole 20 mg PO DAILY 07/06/21 Triamcinolone Acetonide 0.1% [Triamcinolone Acetonide] 1 applic TP BID PRN 07/06/21 Acetaminophen [Acetaminophen Extra Strength] 500 - 1,000 mg PO Q8HR PRN 06/28/22 Rosuvastatin Calcium [Crestor] 40 mg PO DAILY 06/28/22 Allergies/Adverse Reactions: Allergies Allergy/AdvReac Type Severity Reaction Status Date / Time No Known Drug Allergies Allergy Verified 11/09/13 15:40 Anes History & Medical History - Anesthetic History Anesthesia Complications: reports: No previous complications Family history of Anesthesia Complications: Denies Family history of Malignant Hyperthermia: Denies - Medical History Cardiovascular: reports: Hypertension, High cholesterol, Murmur, Other (AVR) Pulmonary: reports: None Gastrointestinal: reports: GERD, Chronic diarrhea Urinary: reports: Incontinence, Nocturia, Frequency Neuro: reports: None Musculoskeletal: reports: Osteoarthritis, Chronic back pain, Other Endocrine/Autoimmune: reports: None Blood Disorders: reports: None Skin: reports: Eczema Smoking Status: Never smoker Psychosocial: reports: No issues indicated History of Cancer?: No - Surgical History General: reports: Colonoscopy Eyes Ears Nose Throat (EENT): reports: Cataracts, Other Cardiothoracic: reports: Valve replacement Gynecologic: reports: Tubal ligation, Hysterectomy Orthopedic: reports: Other Results - EKG Results EKG Comparison: Reviewed EKG - Echo Results Echo Results: Report reviewed Exam General: Alert, Oriented x3, Cooperative, No acute distress Dental: WNL Mouth Openin Fingerbreadth Neck Mobility: Normal Mallampati classification: II Thyromental Distance: less than 4 cm Respiratory: Lungs clear, Normal breath sounds, No respiratory distress, No accessory muscle use Cardiovascular: Regular rate, Normal S1, Normal S2, Other (systolic murmur) Plan Anesthesia Type: General Consent for Procedure(s) Verified and Reviewed: Yes Code Status: Attempt Resuscitation ASA classification: 3-Severe systemic disease Is this case an emergency?: No
[2024-02-20] MEDS ORDERED: PROPOFOL 200 MG/20 ML VIAL IVP ONE (09:18)
[2024-02-20] MEDS: LACTATED RINGERS 700 ML IV ONE (09:36)
[2024-02-20 09:58] VITALS: O2SAT 100
[2024-02-20 10:18] VITALS: BP 123/55
--- NOTE | 2024-02-20 12:40 | ANESTHESIA POST OP EVALUATION ---
Anesthesia Post Eval - Post Anesthesia Eval Vitals: Last Vital Signs Temp 36.4 C L 02/20/24 10:09 Pulse 81 02/20/24 10:09 Resp 14 02/20/24 10:09 BP 123/55 L 02/20/24 10:09 Pulse Ox 100 02/20/24 10:09 O2 Flow Rate CV Function Including HR & BP: Stable Pain Control: Satisfactory Nausea & Vomiting: Negative Mental Status: Baseline Respiratory Status: Airway Patent Hydration Status: Satisfactory Anesthesia Complications: None
--- NOTE | 2024-02-20 12:40 | ANESTHESIA ---
Pre-Anesthesia VS, & Labs - Diagnosis GERD and screening exam - Procedure EGD and colonoscopy Vital Signs: Temp Pulse Resp BP Pulse Ox O2 Flow Rate 36.4 C L 81 14 123/55 L 100 02/20/24 10:09 02/20/24 10:09 02/20/24 10:09 02/20/24 10:02/20/24 10:09 Height: 5 ft 5 in Weight (kg): 91.6 kg Body Mass Index: 33.5 BMI Classification: Obese - NPO >8 hours - Is Patient ?: No Home Medications and Allergies Meloxicam [Mobic] 7.5 mg PO BID 11/09/13 Oxybutynin Chloride [Oxybutynin Chloride ER] 10 mg PO BID 11/09/13 Aspirin [Aspir-Low] 81 mg PO DAILY 08/30/16 Multivitamin [Multiple Vitamins] 1 each PO DAILY 12/18/18 Amlodipine Besylate [Norvasc] 10 mg PO DAILY 07/06/21 Azelastine HCl 1 drops EACHEYE BID PRN 07/06/21 Calcium Carbonate/Vitamin D3 [Calcium 600-Vit D3 200 Tablet] 1 each PO BID 07/06/21 Famotidine [Pepcid] 20 mg PO DAILY 07/06/21 Fluticasone Propionate 1 spray NS BID 07/06/21 Levocetirizine Dihydrochloride 5 mg PO DAILY 07/06/21 Losartan Potassium [Cozaar] 100 mg PO DAILY 07/06/21 Omeprazole 20 mg PO DAILY 07/06/21 Triamcinolone Acetonide 0.1% [Triamcinolone Acetonide] 1 applic TP BID PRN 07/06/21 Acetaminophen [Acetaminophen Extra Strength] 500 - 1,000 mg PO Q8HR PRN 06/28/22 Rosuvastatin Calcium [Crestor] 40 mg PO DAILY 06/28/22 Allergies/Adverse Reactions: Allergies Allergy/AdvReac Type Severity Reaction Status Date / Time No Known Drug Allergies Allergy Verified 11/09/13 15:40 Anes History & Medical History - Anesthetic History Anesthesia Complications: reports: No previous complications - Medical History Cardiovascular: reports: Hypertension, High cholesterol, Murmur, Other (AVR) Pulmonary: reports: None Gastrointestinal: reports: GERD, Chronic diarrhea Urinary: reports: Incontinence, Nocturia, Frequency Neuro: reports: None Musculoskeletal: reports: Osteoarthritis, Chronic back pain, Other Endocrine/Autoimmune: reports: None Blood Disorders: reports: None Skin: reports: Eczema Smoking Status: Never smoker Psychosocial: reports: No issues indicated - Surgical History General: reports: Colonoscopy Eyes Ears Nose Throat (EENT): reports: Cataracts, Other Cardiothoracic: reports: Valve replacement Gynecologic: reports: Tubal ligation, Hysterectomy Orthopedic: reports: Other Exam General: Alert, Oriented x3, Cooperative Dental: WNL Mouth Openin Fingerbreadth Neck Mobility: Normal Mallampati classification: II Thyromental Distance: 4-6 cm Mental/Cognitive Status: Alert/Oriented X3, Normal for patient Plan Anesthesia Type: General, Total IV Consent for Procedure(s) Verified and Reviewed: Yes Code Status: Attempt Resuscitation ASA classification: 3-Severe systemic disease Is this case an emergency?: No
== END 2024-02-20 07:16 | disposition home or self-care (01) ==
LOC: SDS 07:15
PROVIDERS: ATTEND Surgery
PROC: 0DBF8ZX Excision of Right Large Intestine, Via Natural or Artificial Opening Endoscopic, Diagnostic (ICD-10-PCS; 2024-02-20)
PROC: 0DBG8ZX Excision of Left Large Intestine, Via Natural or Artificial Opening Endoscopic, Diagnostic (ICD-10-PCS; 2024-02-20)
PROC: 0DB38ZX Excision of Lower Esophagus, Via Natural or Artificial Opening Endoscopic, Diagnostic (ICD-10-PCS; 2024-02-20)
PROC: 0DB78ZX Excision of Stomach, Pylorus, Via Natural or Artificial Opening Endoscopic, Diagnostic (ICD-10-PCS; 2024-02-20)
PROC: 0DB28ZX Excision of Middle Esophagus, Via Natural or Artificial Opening Endoscopic, Diagnostic (ICD-10-PCS; 2024-02-20)
PROC: 0DBK8ZZ Excision of Ascending Colon, Via Natural or Artificial Opening Endoscopic (ICD-10-PCS; principal; 2024-02-20 08:30)
PROC: 0DBL8ZZ Excision of Transverse Colon, Via Natural or Artificial Opening Endoscopic (ICD-10-PCS; 2024-02-20 08:30)
DX: K52.9 Noninfective gastroenteritis and colitis, unspecified (principal); D12.2 Benign neoplasm of ascending colon; K63.5 Polyp of colon; K57.30 Diverticulosis of large intestine without perforation or abscess without bleeding; K21.9 Gastro-esophageal reflux disease without esophagitis; R13.10 Dysphagia, unspecified; K44.9 Diaphragmatic hernia without obstruction or gangrene; K29.50 Unspecified chronic gastritis without bleeding; Z80.0 Family history of malignant neoplasm of digestive organs; E66.9 Obesity, unspecified; Z68.33 Body mass index [BMI] 33.0-33.9, adult; Z95.2 Presence of prosthetic heart valve; R73.03 Prediabetes
CPT/HCPCS: 43239; 45380; J7120

== ENCOUNTER 2024-03-04 13:43 | Outpatient (CLI) | payer MEDICARE | END 2024-03-04 13:44 | disposition home or self-care (01) | LOC: DI 13:43 | PROVIDERS: ATTEND Internal Medicine Cardiovascular Disease | DX: I34.0 Nonrheumatic mitral (valve) insufficiency (principal); Z95.2 Presence of prosthetic heart valve | CPT/HCPCS: 93307 ==